=== PATIENT | female | born 1965 | race Two or more races ===

== ENCOUNTER → 2024-03-04 | Outpatient (CLI) | payer MEDICAID, SELFPAY ==
[2024-03-04 12:58] LABS: Absolute Lymphocyte Count 1.55 X10^3/uL (0.83-4.51); Absolute Neutrophil Count 4.2 X10^3/uL (2.0-7.7); Basophil# 0.03 X10^3/uL; Basophil% 0.5 % (0-1); Eosinophil# 0.11 X10^3/uL; Eosinophils% 1.7 % (0-5); Hematocrit 40.8 % (37-47); Lymphocyte # 1.55 X10^3/ul (0.83-4.51); Lymphocyte % 23.8 % (19-41); Mean Corp Hgb Conc 31.9 g/dL (32-36); Mean Corpuscular Hgb 29.2 pg (27.0-32.0); Mean Corpuscular Volume 91.7 fL (81-99); Mean Platelet Vol. 9.4 fl (6.2-12.0); Monocyte# 0.67 X10^3/uL; Monocyte% 10.3 % (0-10); NRBC Flagged by Analyzer 0 % (0-5); Neutrophil # 4.15 X10^3/uL (2.7-7.7); Neutrophil % 63.5 % (47-70); Platelet Count 258 K/mm3 (150-450); RBC Distribution Width CV 12.2 % (11.6-14.6); RBC Distribution Width SD 41.1 fl (35.1-43.9); Red Blood Count 4.45 M/mm3 (4.2-5.4); White Blood Count 6.5 K/mm3 (4.4-11.0)
[2024-03-04 18:27] LABS: ALB/GLOB Ratio 0.9 RATIO (0.9-2.4); AST(SGOT) 21 U/L (15-37); Alanine Aminotransfer ALT/SGPT 23 U/L (13-56); Albumin, Serum 3.6 g/dL (3.2-5.0); Alkaline Phosphatase 91 U/L (45-117); Anion Gap 8 (5-15); BUN 21 mg/dL (7-18); BUN/Creat Ratio 30.4 RATIO (10-20); Calcium,Total 9.4 mg/dL (8.5-10.1); Chloride 106 mmol/L (98-107); Cholesterol 115 mg/dL (200); Creatinine, Serum 0.69 mg/dL (0.55-1.02); EST Glomerular Filtration Rate 93 mL/min (>60); Est Glom Filt Rate - Afr Amer 113 mL/min (>60); Globulin 3.8 g/dL (2.2-4.2); Glucose 97 mg/dL (74-106); High Density Lipoprotein 71 mg/dL; Potassium 4.1 mmol/L (3.5-5.1); Protein, Total 7.4 g/dL (6.4-8.2); Sodium Level 138 mmol/L (136-145); Triglycerides 44 mg/dL; Very Low Density Lipoprotein 9 mg/dL (5-40)
== END | disposition home or self-care (01) ==
LOC: VSLAB 12:32
DX: E78.5 Hyperlipidemia, unspecified (principal); Z13.6 Encounter for screening for cardiovascular disorders
CPT/HCPCS: 36415; 80053; 80061; 84443; 85025

== ENCOUNTER → 2024-03-09 | Outpatient (CLI) | payer MEDICAID, SELFPAY ==
[2024-03-09 17:19] LABS: OXY Internal Control LINE = VALID (VALID); Oxycodone Drug Screen Negative (<100 ng/mL)
[2024-03-09 17:38] LABS: Amphetamine Urine POSITIVE (<1000 ng/mL); Barbiturate Urine VISTA NEGATIVE (< 200 ng/mL); Benzodiazepine Urine VISTA NEGATIVE (< 200 ng/mL); Cocaine Urine VISTA NEGATIVE (< 300 ng/mL); Ecstacy Urine VISTA NEGATIVE (< 500 ng/mL); Methadone Urine VISTA NEGATIVE (< 300 ng/mL); PCP Urine VISTA NEGATIVE (< 25 ng/mL); THC Urine VISTA NEGATIVE (< 50 ng/mL); Vista UDS pH Range 5
== END | disposition home or self-care (01) ==
PROVIDERS: Referring Provider Anesthesiology; Visit Provider Anesthesiology
DX: F11.20 Opioid dependence, uncomplicated (principal)
CPT/HCPCS: 80365; 80307; G0480

== ENCOUNTER → 2024-03-11 | Outpatient (CLI) | payer MEDICAID, SELFPAY ==
[2024-03-11 11:02] LABS: Amphetamine Urine NEGATIVE (<1000 ng/mL); Barbiturate Urine VISTA NEGATIVE (< 200 ng/mL); Benzodiazepine Urine VISTA NEGATIVE (< 200 ng/mL); Cocaine Urine VISTA NEGATIVE (< 300 ng/mL); Ecstacy Urine VISTA NEGATIVE (< 500 ng/mL); Methadone Urine VISTA NEGATIVE (< 300 ng/mL); PCP Urine VISTA NEGATIVE (< 25 ng/mL); THC Urine VISTA NEGATIVE (< 50 ng/mL); Vista UDS pH Range 8
== END | disposition home or self-care (01) ==
PROVIDERS: Referring Provider Anesthesiology; Visit Provider Anesthesiology
DX: F11.120 Opioid abuse with intoxication, uncomplicated (principal)
CPT/HCPCS: 80307

== ENCOUNTER 2024-04-08 12:46 | Outpatient (RCR) | payer BC, MEDICAID, SELFPAY ==
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
--- NOTE | 2024-06-16 12:58 | HP.PT.NRP ---
Patient Information Patient Information: KYMBERLY MARCANO was seen in my office for initial evaluation on 04/08/24. The following Plan of Care was established for this patient: POC Established Initial Frequency: 2-3x /Week Initial Duration: 4-6 Weeks Anticipated Interventions Patient/Client Instruction: Educate patient on: Condition and Plan of Care For the Purpose of:: To decrease pain, To increase ROM, To improve nutrient delivery to tissue, To increase tolerance to activity/condition/position, To improve ability of physical actions for home/community/work/leisure and To improve gait and locomotor functions Therapeutic Exercise to Include: Strength training, Postural training, Flexibilty training, In an aquatic setting, Passive ROM and Active ROM For the Purpose of:: To decrease pain, To increase ROM, To improve nutrient delivery to tissue, To improve muscle performance and motor function and To increase tolerance to activity/condition/position Last Seen Last Seen: This patient was last seen in our office 04/08/24. Pertinent comments regarding their Physical therapy will appear below: Eval performed and POC established, pt had insurance troubles and was to get them taken care of and call when needed to return. It has been over 6 weeks and at this point I will discontinue from my care due to nonattendance but would be happy to see again in future if found appropriate by physician and insurance issues are cleared up. At this point I will be discontinuing this patient from physical therapy. I would be happy to see this patient again in the future if found appropriate by the physician. Thank you! Jorge Ortega, DPT, OCS, CSCS Balance/Gait/Functional tests Balance/Special Test Scores Oswestry Low Back Score: 21
== END 2024-04-08 19:00 | disposition home or self-care (01) ==
LOC: PT 12:46
PROVIDERS: Referring Provider Anesthesiology; Visit Provider Anesthesiology
DX: M54.50 Low back pain, unspecified (principal); G89.29 Other chronic pain; M47.816 Spondylosis without myelopathy or radiculopathy, lumbar region
CPT/HCPCS: 97161

== ENCOUNTER → 2024-07-14 | Outpatient (CLI) | payer BC, SELFPAY ==
--- NOTE | 2024-07-14 14:29 | RAD_ITS ---
PROCEDURE: L/S SPINE COMP/W BENDING VIEWS 07/14/2024 REASON FOR EXAM: LOW BACK PAIN TECHNIQUE: Standing AP lateral and oblique views of the lumbar spine were obtained. COMPARISON: None. FINDINGS: There are no compression fractures. There is maintenance of the normal lumbar lordosis. There is mild dextroscoliosis of the spine centered at the T10-11 level and mild levoscoliosis of the spine centered at the L3 level. There is degenerative disc disease, T10-11 through L5-S1 with narrowing of the intervertebral disc spaces and marginal osteophytes. There is multilevel facet arthropathy. There is degenerative grade 1 retrolisthesis of L1 and L2 and degenerative grade 1 anterolisthesis of L4 on L5. The SI joints are normal. Paravertebral soft tissues are normal. RAD/L/S Spine Comp/w Bending Views IMPRESSION: 1. Multilevel facet arthropathy with scoliosis as described. 2. Multilevel facet arthropathy with degenerative retrolisthesis L1 on L2 and anterolisthesis of L4 on L5. Reading Location: [id number]
== END | disposition home or self-care (01) ==
LOC: MTRAD 14:28
PROVIDERS: Referring Provider Anesthesiology Pain Medicine; Visit Provider Anesthesiology Pain Medicine
DX: M51.372 Other intervertebral disc degeneration, lumbosacral region with discogenic back pain and lower extremity pain (principal)
CPT/HCPCS: 72114

== ENCOUNTER → 2024-07-25 | Outpatient (CLI) | payer BC, SELFPAY ==
--- OUTSIDE RECORDS SUMMARY | 2024-07-25 11:06 | XMS RPT_ITS | CCD ---
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 [place], [address] METHADONE Negative Normal < 300 ng/mL [facility] Comment on above: Order Comment: UNK Performed By: #### L 505.5000, L3410.9998 ####[facility] [address] [place], [address] OPIATES Negative Normal < 300 ng/mL [facility] Comment on above: Order Comment: UNK Performed By: #### L 505.5000, L3410.9998 ####[facility] [address] [place], [address] PCP Negative Normal < 25 ng/mL [facility] Comment on above: Order Comment: UNK Performed By: #### L 505.5000, L3410.9998 ####[facility] [address] [place], [address] THC Negative Normal < 50 ng/mL [facility] Comment on above: Order Comment: UNK Performed By: #### L 505.5000, L3410.9998 ####[facility] [address] [place], [address] VISTA UDS PH 8 Normal [facility] Comment on above: Order Comment: UNK Performed By: #### L 505.5000, L3410.9998 ####[facility] [address] [place], [address] Oxycodone Urine Drug Screeno n 03-09-2024 OXY DRG SCREEN Negative Normal <100 ng/mL [facility] Comment on above: Order Comment: UNKNO WN Performed By: #### L 505.5000, L505.6200, L3410.9998 #### [facility] Laboratory [address] [place], [address] DRUG CONFIRM Normal [facility] Comment on above: Order Comment: UNKNO WN Result Comment: CONF IRMATORY TESTING FOR ALL POSITIVE URINE DRUG SCREEN RESULTS WILL ONLY BE SENT OUT UPON PHYSICIAN ORDER. The results of Urine Drug Screen methods provide only preliminary analytical test results. A more specific alternate chemical method must be used in order to obtain a confirmed analytical result. Gas chromatography/mass spectrometery (GC/MS) is the preferred confirmatory method. Clinical consideration and professional judgement should be applied to any drug of abuse test result, particularly when preliminary positive results are used. Performed By: #### L 505.5000, L505.6200, L3410.9998 #### [facility] [address] [place], [address] Urine Drug Screen (VISTA)on 03-09-2024 AMPHETAMINES Positive Abnormal <1000 ng/mL [facility] Comment on above: Order Comment: UNKNO WN Performed By: #### L 505.5000, L505.6200, L3410.9998 #### [facility] Laboratory [address] [facility] [address] BARBITIURATES Negative Normal < 200 ng/mL [facility] Comment on above: Order Comment: UNKNO WN Performed By: #### L 505.5000, L505.6200, L3410.9998 #### [facility] Laboratory [address] [facility] [address] BENZODIAZIPINE Negative Normal < 200 ng/mL [facility] Comment on above: Order Comment: UNKNO WN Performed By: #### L 505.5000, L505.6200, L3410.9998 #### [facility] [address] [facility] [address] COCAINE Negative Normal < 300 ng/mL [facility] Comment on above: Order Comment: UNKNO WN Performed By: #### L 505.5000, L505.6200, L3410.9998 #### [facility] [address] [facility] [address] ECSTACY Negative Normal < 500 ng/mL [facility] Comment on above: Order Comment: UNKNO WN Performed By: #### L 505.5000, L505.6200, L3410.9998 #### [facility] [address] [place], [address] METHADONE Negative Normal < 300 ng/mL [facility] Comment on above: Order Comment: UNKNO WN Performed By: #### L 505.5000, L505.6200, L3410.9998 #### [facility] [address] [place], [address] OPIATES Negative Normal < 300 ng/mL [facility] Comment on above: Order Comment: UNKNO WN Performed By: #### L 505.5000, L505.6200, L3410.9998 #### [facility] [address] [place], [address] PCP Negative Normal < 25 ng/mL [facility] Comment on above: Order Comment: UNKNO WN Performed By: #### L 505.5000, L505.6200, L3410.9998 #### [facility] [address] [place], [address] THC Negative Normal < 50 ng/mL [facility] Comment on above: Order Comment: UNKNO WN Performed By: #### L 505.5000, L505.6200, L3410.9998 #### [facility] [address] [place], [address] VISTA UDS PH 5 Normal [facility] Comment on above: Order Comment: UNKNO WN Performed By: #### L 505.5000, L505.6200, L3410.9998 #### [facility] Laboratory [address] [place], [address] CBC W/Diff, Automatedon 01-2 Absolute Lymph 1.55 X10 3/uL Normal 0.83-4.51 [facility] Comment on above: Performed By: #### L 501.9520, L100.0100, L500.4100, L500.4050 #### [facility] [address] [place], [address] Absolute Neut 4.2 X10 3/uL Normal 2.0-7.7 [facility] Comment on above: Performed By: #### L 501.9520, L100.0100, L500.4100, L500.4050 #### [facility] Laboratory [address] [place], [address] Basophils/100 WBC (Bld) 0.5 % Normal 0-1 [facility] Comment on above: Performed By: #### L 501.9520, L100.0100, L500.4100, L500.4050 #### [facility] [address] [place], [address] Eosinophils/100 WBC (Bld) 1.7 % Normal 0-5 [facility] Comment on above: Performed By: #### L 501.9520, L100.0100, L500.4100, L500.4050 #### [facility] [address] [place], [address] Erythrocyte distribution width (RBC) [Ratio] 12.2 % Normal 11.6-14.6 [facility] Comment on above: Performed By: #### L 501.9520, L100.0100, L500.4100, L500.4050 #### [facility] [address] [place], [address] Hematocrit (Bld) [Volume fraction] 40.8 % Normal 37-47 [facility] Comment on above: Performed By: #### L 501.9520, L100.0100, L500.4100, L500.4050 #### [facility] [address] [place], [address] Hemoglobin (Bld) [Mass/Vol] 13.0 g/dL Normal 12.0-15.0 [facility] Comment on above: Performed By: #### L 501.9520, L100.0100, L500.4100, L500.4050 #### [facility] [address] [place], [address] IG% 0.200 Normal 0.0-0.9 [facility] Comment on above: Result Comment: IG% - Immature Granulocytes (promyelocytes, myelocytes and metamyelocytes) > 1% indicates that a LEFT SHIFT is Present. Performed By: #### L 501.9520, L100.0100, L500.4100, L500.4050 #### [facility] [address] [place], [address] Lymphocytes/100 WBC (Bld) 23.8 % Normal 19-41 [facility] Comment on above: Performed By: #### L 501.9520, L100.0100, L500.4100, L500.4050 #### [facility] [address] [place], [address] MCH (RBC) [Entitic mass] 29.2 pg Normal 27.0-32.0 [facility] Comment on above: Performed By: #### L 501.9520, L100.0100, L500.4100, L500.4050 #### [facility] [address] [place], [address] MCHC (RBC) [Mass/Vol] 31.9 g/dL Low 32-36 [facility] Comment on above: Performed By: #### L 501.9520, L100.0100, L500.4100, L500.4050 #### [facility] [address] [place], [address] MCV (RBC) [Entitic vol] 91.7 fL Normal 81-99 [facility] Comment on above: Performed By: #### L 501.9520, L100.0100, L500.4100, L500.4050 #### [facility] [address] [place], [address] Monocytes/100 WBC (Bld) 10.3 % High 0-10 [facility] Comment on above: Performed By: #### L 501.9520, L100.0100, L500.4100, L500.4050 #### [facility] [address] [place], [address] Neutrophils/100 WBC (Bld) 63.5 % Normal 47-70 [facility] Comment on above: Performed By: #### L 501.9520, L100.0100, L500.4100, L500.4050 #### [facility] [address] [place], [address] Nucleated RBC (Bld) [#/Vol] 0 10*3/uL Normal 0-5 [facility] Comment on above: Performed By: #### L 501.9520, L100.0100, L500.4100, L500.4050 #### [facility] [address] [place], [address] Platelet mean volume (Bld) [Entitic vol] 9.4 fL Normal 6.2-12.0 [facility] Comment on above: Performed By: #### L 501.9520, L100.0100, L500.4100, L500.4050 #### [facility] [address] [place], [address] Platelets (Bld) [#/Vol] 258 10*3/uL Normal 150-450 [facility] Comment on above: Performed By: #### L 501.9520, L100.0100, L500.4100, L500.4050 #### [facility] [address] [place], [address] RBC (Bld) [#/Vol] 4.45 10*6/uL Normal 4.2-5.4 [facility] Comment on above: Performed By: #### L 501.9520, L100.0100, L500.4100, L500.4050 #### [facility] [address] [place], [address] RDW SD 41.1 fl Normal 35.1-43.9 [facility] Comment on above: Performed By: #### L 501.9520, L100.0100, L500.4100, L500.4050 #### [facility] [address] [place], [address] WBC (Bld) [#/Vol] 6.5 10*3/uL Normal 4.4-11.0 [facility] Comment on above: Performed By: #### L 501.9520, L100.0100, L500.4100, L500.4050 #### [facility] [address] [place], [address] Comprehensive Metabolic [facility] 03-04-2024 Albumin [Mass/Vol] 3.6 g/dL Normal 3.2-5.0 [facility] Comment on above: Performed By: #### L 501.9520, L100.0100, L500.4100, L500.4050 #### [facility] [address] [place], [address] Albumin/Globulin [Mass ratio] 0.9 {ratio} Normal 0.9-2.4 [facility] Comment on above: Performed By: #### L 501.9520, L100.0100, L500.4100, L500.4050 #### [facility] [address] [place], [address] ALK P 91 U/L Normal 45-117 [facility] Comment on above: Performed By: #### L 501.9520, L100.0100, L500.4100, L500.4050 #### [facility] [address] [place], [address] ALT [Catalytic activity/Vol] 23 U/L Normal 13-56 [facility] Comment on above: Performed By: #### L 501.9520, L100.0100, L500.4100, L500.4050 #### [facility] [address] [place], [address] AST [Catalytic activity/Vol] 21 U/L Normal 15-37 [facility] Comment on above: Performed By: #### L 501.9520, L100.0100, L500.4100, L500.4050 #### [facility] [address] [place], [address] Bilirubin [Mass/Vol] 0.50 mg/dL Normal 0.20-1.00 [facility] Comment on above: Result Comment: For patients on eltrombopag therapy, use of Dimension [place] TBIL is not recommended. Performed By: #### L 501.9520, L100.0100, L500.4100, L500.4050 #### [facility] [address] [place], [address] BUN/CRE 30.4 RATIO High 10-20 [facility] Comment on above: Performed By: #### L 501.9520, L100.0100, L500.4100, L500.4050 #### [facility] [address] [place], [address] CA,Total 9.4 mg/dL Normal 8.5-10.1 [facility] Comment on above: Performed By: #### L 501.9520, L100.0100, L500.4100, L500.4050 #### [facility] [address] [place], [address] Chloride [Moles/Vol] 106 mmol/L Normal 98-107 [facility] Comment on above: Performed By: #### L 501.9520, L100.0100, L500.4100, L500.4050 #### [facility] [address] [place], [address] CO2 [Moles/Vol] 23.0 mmol/L Normal 21.0-32.0 [facility] Comment on above: Performed By: #### L 501.9520, L100.0100, L500.4100, L500.4050 #### [facility] [address] [place], [address] Creatinine [Mass/Vol] 0.69 mg/dL Normal 0.55-1.02 [facility] Comment on above: Result Comment: The validity of the calculated GFR GFRAA in patients over 70 years has not been determined. Clinical correlation is essential. Performed By: #### L 501.9520, L100.0100, L500.4100, L500.4050 #### [facility] [address] [place], [address] EST GFR - AA 113 mL/min Normal >60 [facility] Comment on above: Result Comment: Afri can Brazilian GFR Calc Performed By: #### L 501.9520, L100.0100, L500.4100, L500.4050 #### [facility] [address] [place], [address] GAP 8 Normal 5-15 [facility] Comment on above: Performed By: #### L 501.9520, L100.0100, L500.4100, L500.4050 #### [facility] [address] [place], [address] GFR/1.73 sq M.predicted among non-blacks MDRD (S/P/Bld) [Vol rate/Area] 93 mL/min/{1.73_m2} Normal >60 [facility] Comment on above: Result Comment: Non- GFR Calc Performed By: #### L 501.9520, L100.0100, L500.4100, L500.4050 #### [facility] [address] [place], [address] Globulin (S) [Mass/Vol] 3.8 g/dL Normal 2.2-4.2 [facility] Comment on above: Performed By: #### L 501.9520, L100.0100, L500.4100, L500.4050 #### [facility] [address] [place], [address] Glucose [Mass/Vol] 97 mg/dL Normal 74-106 [facility] Comment on above: Performed By: #### L 501.9520, L100.0100, L500.4100, L500.4050 #### [facility] [address] [place], [address] Potassium [Moles/Vol] 4.1 mmol/L Normal 3.5-5.1 [facility] Comment on above: Performed By: #### L 501.9520, L100.0100, L500.4100, L500.4050 #### [facility] [address] [place], [address] Sodium [Moles/Vol] 138 mmol/L Normal 136-145 [facility] Comment on above: Performed By: #### L 501.9520, L100.0100, L500.4100, L500.4050 #### [facility] [address] [place], [address] T PROT 7.4 g/dL Normal 6.4-8.2 [facility] Comment on above: Performed By: #### L 501.9520, L100.0100, L500.4100, L500.4050 #### [facility] [address] [place], [address] Urea nitrogen [Mass/Vol] 21 mg/dL High 7-18 [facility] Comment on above: Performed By: #### L 501.9520, L100.0100, L500.4100, L500.4050 #### [facility] [address] [place], [address] Lipid Profileon 03-04-2024 Cholesterol [Mass/Vol] 115 mg/dL Normal 200 [facility] Comment on above: Result Comment: <200 mg/dL Desirable 200-240 mg/dL Borderline >240 mg/dL High Risk Performed By: #### L 501.9520, L100.0100, L500.4100, L500.4050 #### [facility] [address] [place], [address] Cholesterol in HDL [Mass/Vol] 71 mg/dL Normal [facility] Comment on above: Result Comment: The drugs N-Acetylcysteine and Metamizole may falsely depress this assay. Reference Range HDL <40 mg/dL Low HDL Cholesterol HDL >or= 60 mg/dL High HDL Cholesterol Performed By: #### L 501.9520, L100.0100, L500.4100, L500.4050 #### [facility] [address] [place], [address] Cholesterol in LDL [Mass/Vol] 35 mg/dL Normal 0-130 [facility] Comment on above: Performed By: #### L 501.9520, L100.0100, L500.4100, L500.4050 #### [facility] [address] [place], [address] Cholesterol in VLDL [Mass/Vol] 9 mg/dL Normal 5-40 [facility] Comment on above: Performed By: #### L 501.9520, L100.0100, L500.4100, L500.4050 #### [facility] [address] [place], [address] Triglyceride [Mass/Vol] 44 mg/dL Normal [facility] Comment on above: Result Comment: The drugs N-Acetylcysteine and Metamizole may falsely depress this assay. Serum Triglycerides Reference Interval Normal <150 mg/dL Borderline high 150 - 199 mg/dL High 200 - 499 mg/dL Very High > or = 500 mg/dL Performed By: #### L 501.9520, L100.0100, L500.4100, L500.4050 #### [facility] [address] [place], [place], [address] Thyroid Stim Hormone (TSH)on 03-04-2024 TSH 1.470 uIU/mL Normal 0.358-3.740 [facility] Comment on above: Performed By: #### L 501.9520, L100.0100, L500.4100, L500.4050 #### [facility] [address] [place], [place], [address] [facility] KYMBERLY MARCANO ([id number]) 1965 F Date Time Provider Department 01/07/24 JESSICA ANN [facility] During your visit today, we recorded the following information about you: Jessica Ann APRN.CNP 01/07/2024 7:30 AM Signed Please notify covid test positive. Will send paxlovid to pharmacy. Have hold lipitor for 2 weeks. Quarantine until 24 hours fever free Push fluids and otc cough/cold medication advised. -If you experience chest pain/shortness of breath go to ER Bonilla Lim MA 01/07/2024 7:50 AM Signed Patient given results and verbalized understanding of instructions given. Bonilla Lim MA Allergies As of Date: 01/07/2024 (No Known Allergies) Date Reviewed: 01/06/2024 Reviewed by: Bonilla Lim MA - Fully Assessed Reason for Visit: Results [95] Primary Visit Diagnosis:COVID [U07.1] Order(s):nirmatrelvir tablet 300 mg (150 mg x 2) and ritonavir tablet 100 mg in a dose pack (PAXLOVID)Administer TWO pink nirmatrelvir 150 mg tablets and ONE white ritonavir 100 mg tablet for a total of three tablets twice daily.Disp: 30 tabletRfl: 0 Prescriptions as of 01/07/2024 - nirmatrelvir tablet 300 mg (150 mg x 2) and ritonavir tablet 100 mg in a dose pack (PAXLOVID) Administer TWO pink nirmatrelvir 150 mg tablets and ONE white ritonavir 100 mg tablet for a total of three tablets twice daily. - albuterol HFA (PROVENTIL HFA) 90 mcg/actuation inhaler Inhale 1-2 Puffs as instructed. - atorvastatin (LIPITOR) 40 mg tablet Take 40 mg by mouth. - azelastine 0.1% nasal spray SPRAY 1 SPRAY INTO EACH NOSTRIL TWICE A DAY DIRECTED - amphetamine-dextroamph etamine 15 mg tablet - EPINEPHrine (EPIPEN) 0.3 mg/0.3 mL auto-injector Inject 0.3 mg intramuscularly. - DENTA 5000 PLUS 1.1 % dental cream - fluticasone (FLONASE) 50 mcg/actuation nasal spray Use 1 Luckey in the nose. - Ipratropium Mystic (ATROVENT) 21 mcg (0.03 %) nasal spray Use 2 Sprays in the nose. - meloxicam (MOBIC) 15 mg tablet Take 15 mg by mouth. - metFORMIN (GLUCOPHAGE) 500 mg tablet Take 1 tablet by mouth daily with breakfast. - methocarbamol (ROBAXIN) 500 mg tablet Take 500 mg by mouth. - pantoprazole DR (PROTONIX) 20 mg tablet Take 1 tablet by mouth daily before breakfast. - traMADol (ULTRAM) 50 mg tablet Take 50 mg by mouth. - zolpidem (AMBIEN) 10 mg TAKE 1 TABLET BY MOUTH EVERY DAY AT BEDTIME NEEDED FOR INSOMNIA Indications: difficulty falling asleep Problem List As Of Date: 01/07/2024 (None) Prescriptions ordered this encounter Disp Refills Start End NIRMATRELVIR 300 MG (150 MG X2)-MISSY* 30 t* 0 01/07/2024 01/12/2024 Sig: Administer TWO pink nirmatrelvir 150 mg tablets and ONE white ritonavir 100 mg tablet for a total of three tablets twice daily. Encounter Status:Closed by BONILLA LIM on 01/07/24 Normal [facility] CNOVon 01-06-2024 CNOV Office Visit ([facility] ) KYMBERLY MARCANO ([id number]) 1965 F Date Time Provider Department 01/06/24 12:00 PM CARLOS PARIS [facility] During your visit today, we recorded the following information about you: Temperature Pulse Respiration Blood pressure 98 degrees 100/minute 18/minute 124/68 Weight 70.6 kg Carlos Paris MD 01/06/2024 12:22 PM Signed Patient presents with: Cough: head and chest congestion, bodyaches x 1 day HPI: Feeling sick since yesterday. Positive symptoms: Cough, tickle and thick throat, Sinus pressure, Chills, Malaise, Fatigue, poor appetite Negative symptoms: Shortness of breath, Fever, Vomiting, Diarrhea, OTC: Nyquil, Lozenges Just finished working 7 days in a row. Newly moved to the [facility] [employer]. PAST MEDICAL HISTORY Diagnosis Date ADHD (attention deficit hyperactivity disorder) Dyslipidemia Fibromyositis GERD (gastroesophageal reflux disease) Insomnia Osteoarthritis Prediabetes MEDICATIONS: Current Outpatient Medications Medication Sig albuterol HFA (PROVENTIL HFA) 90 mcg/actuation inhaler Inhale 1-2 Puffs as instructed. atorvastatin (LIPITOR) 40 mg tablet Take 40 mg by mouth. azelastine 0.1% nasal spray SPRAY 1 SPRAY INTO EACH NOSTRIL TWICE A DAY DIRECTED amphetamine-dextroamph etamine 15 mg tablet EPINEPHrine (EPIPEN) 0.3 mg/0.3 mL auto-injector Inject 0.3 mg intramuscularly. DENTA 5000 PLUS 1.1 % dental cream fluticasone (FLONASE) 50 mcg/actuation nasal spray Use 1 Luckey in the nose. Ipratropium Mystic (ATROVENT) 21 mcg (0.03 %) nasal spray Use 2 Sprays in the nose. meloxicam (MOBIC) 15 mg tablet Take 15 mg by mouth. metFORMIN (GLUCOPHAGE) 500 mg tablet Take 1 tablet by mouth daily with breakfast. methocarbamol (ROBAXIN) 500 mg tablet Take [address] mouth[address]op[address] (PROTONIX) 20 mg tablet Take 1 tablet by mouth daily before breakfast. traMADol (ULTRAM) 50 mg tablet Take 50 mg by mouth. zolpidem (AMBIEN) 10 mg TAKE 1 TABLET BY MOUTH EVERY DAY AT BEDTIME NEEDED FOR INSOMNIA Indications: difficulty falling asleep No current facility-administered medications for this visit. ALLERGIES: ALLERGIES No Known Allergies VITALS: BP 124/68 Pulse 100 Temp 36.7 ?C (98 ?F) Resp 18 Wt 70.6 kg (155 lb 10.3 oz) SpO2 95% PHYSICAL EXAM: GEN: mildly ill appearing. Accompanied by her HEENT: PERRL, EOMI, conjunctiva clear Ears: canals with small cerumen. TMs without erythema, bulge, or effusion Sinuses: non-tender frontal sinus, non-tender maxillary sinuses Throat: moist mucous membranes, mild erythema, no exudate Neck: supple, no thyromegaly, no lymphadenopathy HEART: regular rate and rhythm, no murmurs LUNGS: clear to auscultation, no wheezes or crackles, no increased WOB ASSESSMENT/PLAN: 1. Influenza-like illness - ICD9: 487.1, ICD10: J11.1 - suspect viral URI, differential includes COVID-19 and influenza. - Discussed supportive care treatment with rest, hydration, cold medicine, and analgesia. - Red flags to seek further treatment include chest pain, shortness of breath, and lethargy; in the ER if severe. - COVID AND INFLUENZA A/B AND RSV PCR, ROUTINE - she would like antiviral treatment if positive. Reports normal kidney function within the last year. Carlos Paris MD Allergies As of Date: 01/06/2024 (No Known Allergies) Date Reviewed: 01/06/2024 Reviewed by: Bonilla Lim MA - Fully Assessed Reason for Visit: Cough [28] Cmt: head and chest congestion, bodyaches x 1 day Primary Visit Diagnosis:Influenza-li ke illness [J11.1] Order(s):COVID AND INFLUENZA A/B AND RSV PCR, ROUTINE [SQCVFLRS] Order #: [id number]. #:[id number] Prescriptions as of 01/06/2024 - albuterol HFA (PROVENTIL HFA) 90 mcg/actuation inhaler Inhale 1-2 Puffs as instructed. - atorvastatin (LIPITOR) 40 mg tablet Take 40 mg by mouth. - azelastine 0.1% nasal spray SPRAY 1 SPRAY INTO EACH NOSTRIL TWICE A DAY DIRECTED - amphetamine-dextroamph etamine 15 mg tablet - EPINEPHrine (EPIPEN) 0.3 mg/0.3 mL auto-injector Inject 0.3 mg intramuscularly. - DENTA 5000 PLUS 1.1 % dental cream - fluticasone (FLONASE) 50 mcg/actuation nasal spray Use 1 Luckey in the nose. - Ipratropium Mystic (ATROVENT) 21 mcg (0.03 %) nasal spray Use 2 Sprays in the nose. - meloxicam (MOBIC) 15 mg tablet Take 15 mg by mouth. - metFORMIN (GLUCOPHAGE) 500 mg tablet Take 1 tablet by mouth daily with breakfast. - methocarbamol (ROBAXIN) 500 mg tablet Take 500 mg by mouth. - pantoprazole DR (PROTONIX) 20 mg tablet Take 1 tablet by mouth daily before breakfast. - traMADol (ULTRAM) 50 mg tablet Take 50 mg by mouth. - zolpidem (AMBIEN) 10 mg TAKE 1 TABLET BY MOUTH EVERY DAY AT BEDTIME NEEDED FOR INSOMNIA Indications: difficulty falling asleep Problem List As Of Date: 01/06/2024 (None) Level of Service: OFFICE/OUTPAT (more content not included)... Normal [facility] COVID AND INFLUENZA A/B AND RSV PCR, ROUTINEon 01-06-2024 SARS-CoV-2 (COVID-19) RNA MASON+probe Ql (Unsp spec) SARS-COV-2 (AGENT OF COVID-19) RNA: Detected INFLUENZA A RNA: Not detected INFLUENZA B RNA: Not detected RESPIRATORY SYNCYTIAL VIRUS (RSV) RNA: Not detected Abnormal [facility] Comment on above: Performed By: #### C VFLRS #### [facility] CLIA [id number] [address] [place] [address] [place] Vital Signs Date Time Vital Sign Value Performing Clinician Facility 07-17-2024 14:05-0400 Body height 170.18 cm Zebulun Beam GOLF COURSE MANAGER-C Work Phone: [facility] 07-17-2024 14:05-0400 Body mass index (BMI) [Ratio] 27.1 kg/m2 Zebulun Beam GOLF COURSE MANAGER-C Work Phone: [facility] 07-17-2024 14:05-0400 Body weight 78.47 kg Zebulun Beam GOLF COURSE MANAGER-C Work Phone: [facility] 01-06-2024 11:56-0500 Body temperature 98.01 [degF] Carlos Paris MD Work Phone: [facility] 01-06-2024 11:56-0500 Body weight 70.6 kg Carlos Paris MD Work Phone: [facility] 01-06-2024 11:56-0500 Diastolic blood pressure 68 mm[Hg] Carlos Paris MD Work Phone: [facility] 01-06-2024 11:56-0500 Heart rate 100 /min Carlos Paris MD Work Phone: [facility] 01-06-2024 11:56-0500 Respiratory rate 18 /min Carlos Paris MD Work Phone: [facility] 01-06-2024 11:56-0500 SaO2% (BldA) [Mass fraction] 95 % Carlos Paris MD Work Phone: [facility] 01-06-2024 11:56-0500 Systolic blood pressure 124 mm[Hg] Carlos Paris MD Work Phone: [facility] Encounters Encounter Date Encounter Type Care Provider Facility Start: 07-25-2024 ambulatory Sherry Warren Facility:[facility] Start: 07-17-2024 End: 07-17-2024 Patient encounter procedure Sherry BRADLEY -[facility] Work Phone: Start: 07-17-2024 End: 07-17-2024 ambulatory Zebulun Beam GOLF COURSE MANAGER-C Work Phone: [facility] Work Phone: Start: 07-14-2024 End: 07-14-2024 ambulatory Zebulun Beam GOLF COURSE MANAGER-C Work Phone: [facility] Work Phone: Start: 07-14-2024 End: 07-14-[address] Artie Haynes MD -Radiology [place] Work Phone: Start: 07-14-2024 End: 07-14-2024 ambulatory Artie Haynes Facility:[facility] Start: 04-08-2024 End: 04-08-[address] Hema Guardado MD -Physical Therapy Work Phone: Start: 04-08-2024 End: 04-08-2024 ambulatory Hema Guardado Facility:[facility] Start: 03-30-2024 ambulatory Zebulun Beam VSC Facili ty:[facility] Start: 03-11-2024 End: 03-11-2024 [facility] Start: 03-09-2024 End: 03-09-2024 ambulatory Zebulun Beam VSC Facility:[facility] Start: 03-04-2024 End: 03-04-2024 ambulatory Zebulun Beam VSC Facility:[facility] Start: 01-11-2024 End: 01-11-2024 ambulatory Nicole Weir RN NURSE [employer]KEEPING [employer]PER[employer] Comment on above: Covid Positive Start: 01-07-2024 End: 01-07-2024 Telephone encounter Jessica Ann APRN.CNP Work Phone: [facility] Comment on above: Results Start: 01-06-2024 End: 01-06-2024 ambulatory Facility:[facility] Start: 01-06-2024 End: 01-06-2024 Office outpatient new 30 minutes Carlos Paris MD Work Phone: [facility] Comment on above: Influenza-like illne ss (Primary Dx) Procedures Date Procedure Procedure Detail Performing Clinician Start: 07-14-2024 Complete x-ray serie s of lumbosacral spine including bending views Zebulun Beam GOLF COURSE MANAGER-C Work Phone: Start: 07-16-2022 Lipid 1996 panel - S danny or Plasma Carlos Paris MD Work Phone: Plan of Treatment Date Care Activity Detail Author Start: 09-21-2029 Urine microalbumin profile DTaP,Tdap,Td Vaccine (2 - Td or Tdap) [facility] Start: 07-17-2027 Lipid panel Lipid Screening [facility] Start: 04-29-2026 Diabetes Screening Diabetes Screening [facility] Start: 10-13-2023 Covid-19 Vaccine () Covid-19 Vaccine () [facility] Start: 10-13-2023 Influenza vaccination Influenza Vaccine (#1) [facility] Start: 04-09-2023 Screening for malignant neoplasm of breast Mammogram Screening [facility] Start: 11-04-2011 Screening for malignant neoplasm of colon [facility] Start: 11-04-1987 Screening for malignant neoplasm of cervix Cervical Cancer Screening [facility] Start: 1985 Hepatitis B Vaccine (1 of 3 - 19+ 3-dose series) Hepatitis B Vaccine (1 of 3 - 19+ 3-dose series) [facility] Start: 1984 Anxiety Screening Anxiety Screening [facility] Start: 1984 Depression Screening Depression Screening [facility] Start: 1984 Hepatitis C screening Hepatitis C Screening [facility] Start: 1984 HIV screening HIV Screening [facility] COVID & INFLUENZA A/ B & RSV PCR, ROUTINE COVID & INFLUENZA A/B & RSV PCR, ROUTINE Microbiology Routine Influenza-like illness 01/06/2024 12:18 PM EST [facility] Work Phone: MR Lumbar spine [facility] [place] [place] Immunizations Immunization Date Immunization Notes Care Provider Fa cility 11-15-2022 influenza virus vacc ine, unspecified formulation Carlos Paris MD Work Phone: [facility] Payers Date Payer Category Payer Self-pay 2024 Unknown [id number] 2024 Private Health Insurance [employer]NA [employer] MEDICAID [facility] [id number] 2024-Present [address] [address] [place] [address] Medicaid [id number] 2024 Medicaid [id number] Unknown [id number] 62 Unknown [id number] 62 Unknown [id number] 62 Unknown [id number] 62 Unknown [id number] 62 Unknown [id number] 62 Unknown [id number] 62 Unknown [id number] 62 Social History Date Type Detail Facility Tobacco smoking status NHIS Tobacco smoking consumption unknown [facility] Start: 1965 Sex assigned at Not on file [facility] Gender identity Not on file [facility] Start: 07-17-2024 Tobacco smoking status NHIS Never smoked tobacco (finding) [facility] Start: 1965 Sex Assigned At Female [facility] Clinical Notes 01-06-2024 to 07-17-2024 Note Date & Type Note Facility 07-17-2024 Evaluation note Diagnosis Onset Date Resolution Degenerative disc disease (DDD) of lumbar region with axial back pain witho acute July 17, 2024 1:53pm Spondylolisthesis at L1-L2 level acute July 17, 2024 1:53pm Spondylolisthesis at L4-L5 level acute July 17, 2024 1:53pm [facility] Work Phone: 1(897) 794-775306-04-2025 Radiology Diagnostic study note [facility] Imaging Services [address] [place] [address] L/S Spine Comp/w Bending Views MR#: [id number] Acct: [id number] Name: KYMBERLY MARCANO Rep #: [id number] : 1965 F 58 From: Sarkis Fermin MD PCP: Alejandra Avila GOLF COURSE MANAGER-C Status: REG CLI Study:L/S Spine Comp/w Bending Views Date of Exam: 07/14/24 Exam# [id number] Ordering Dr: Artie Haynes MD PROCEDURE: L/S SPINE COMP/W BENDING VIEWS 07/14/2024 REASON FOR EXAM: LOW BACK PAIN TECHNIQUE: Standing AP lateral and oblique views of the lumbar spine were obtained. COMPARISON: None. FINDINGS: There are no compression fractures. There is maintenance of the normal lumbar lordosis. There is mild dextroscoliosis of the spine centered at the T10-11 level and mild levoscoliosis of the spine centered at the L3 level. There is degenerative disc disease, T10-11 through L5-S1 with narrowing of the intervertebral disc spaces and marginal osteophytes. There is multilevel facet arthropathy. There is degenerative grade 1 retrolisthesis ofL1 and L2 and degenerative grade 1 anterolisthesis of L4 on L5. The SI joints are normal. Paravertebral soft tissues are normal. RAD/L/S Spine Comp/w Bending Views IMPRESSION: 1. Multilevel facet arthropathy with scoliosis as described. 2. Multilevel facet arthropathy with degenerative retrolisthesis L1 on L2 and anterolisthesis of L4on L5. Reading Location: [id number] CC: Dr. Artie Haynes MD; Alejandra [facility] Avila ~ Medical Claims Manager: Signed [facility] Work Phone: 1(555) 485-725711-30-2024 Telephone encounter Note* Telephone Encounter - Nicole Weir RN - 01/11/2024 1:38 PM EST Reason for Call: The patient was tested for Covid on 01/06/24 at [facility]. Her test waspositive and she was started on Paxlovid on 01/07/24. She has one more dose to take. She stated shefeels fine, has only a slight cough, no fever. She just noticed that she has purple blotches on herarms and legs, but nowhere else on the body. She denies feeling cold or in a cold environment. She wonders if this is a side effect of the Paxlovid. Outcome: Looked at the Paxlovid website, and skin color changes are not listed as a side effect. [facility] She wants to take a warm bath first and see if that helps. Told her [facility] will be closing soon and after that her alternative is ER. Reason for Disposition [1] COVID-19 symptoms AND [2] lasting less than 3 weeks MILD difficulty breathing (e.g., minimal/no SOB at rest, SOB with walking, pulse <100) Patient is having no difficulty breathing. Because of the purple color of her extremities, nurse discretion that patient be seen within four hours. Answer Assessment - Initial Assessment Questions 1. SYMPTOMS: just noticed that her arms and legs have purple blotches on them 2. ONSET: just noticed 3. COUGH:still has a mild cough 4. FEVER: no fever 5. BREATHING DIFFICULTY: no difficulty breathing 6. [id number]:feels fine, purple skin just noticed 7. OTHER SYMPTOMS: cough 8. COVID-19 DIAGNOSIS:seen in [facility] on 01/[facility]24 9. COVID-19 EXPOSURE:not asked 10. COVID-19 VACCINE: not asked 11. HIGH RISK DISEASE: asthma 12. : N/A 13. O2 SATURATION MONITOR: Pulse oximeter is still packed in moving boxes Protocols used: COVID-19 - Persisting Symptoms Follow-up [id number], COVID-19 - Diagnosed or [id number] [facility]11-30-2024 Miscellaneous Notes* Telephone Encounter - Nicole Weir RN - 01/11/2024 1:38 PM EST Reason for Call: The patient was tested for Covid on 01/06/24 at [facility]. Her test waspositive and she was started on Paxlovid on 01/07/24. She has one more dose to take. She stated shefeels fine, has only a slight cough, no fever. She just noticed that she has purple blotches on herarms and legs, but nowhere else on the body. She denies feeling cold or in a cold environment. She wonders if this is a side effect of the Paxlovid. Outcome: Looked at the Paxlovid website, and skin color changes are not listed as a side effect. Instructed [facility] to [facility] to [facility]. She wants to take a warm bath first and see if that helps. Told her [facility] will be closing soon and after that her alternative is ER. Reason for Disposition [1] COVID-19 symptoms AND [2] lasting less than 3 weeks MILD difficulty breathing (e.g., minimal/no SOB at rest, SOB with walking, pulse <100) Patient is having no difficulty breathing. Because of the purple color of her extremities, nurse discretion that patient be seen within four hours. Answer Assessment - Initial Assessment Questions 1. SYMPTOMS: just noticed that her arms and legs have purple blotches on them 2. ONSET: just noticed 3. COUGH:still has a mild cough 4. FEVER: no fever 5. BREATHING DIFFICULTY: no difficulty breathing 6. [id number]:feels fine, purple skin just noticed 7. OTHER SYMPTOMS: cough 8. COVID-19 DIAGNOSIS:[facility] 9. COVID-19 EXPOSURE:not asked 10. COVID-19 VACCINE: not asked 11. HIGH RISK DISEASE: asthma 12. : N/A 13. O2 SATURATION MONITOR: Pulse oximeter is still packed in moving boxes Protocols used: COVID-19 - Persisting Symptoms Follow-up [id number], COVID-19 - Diagnosed or [id number] [facility] Telephone encounter Note * Telephone Encounter - Bonilla Lim MA - 01/07/2024 7:49 AM EST Patient given results and verbalized understanding of instructions given. Bonilla Lim MA [facility]11-26-2024 Miscellaneous Notes* Telephone Encounter - Bonilla Lim MA - 01/07/2024 7:49 AM EST Patient given results and verbalized understanding of instructions given. Bonilla Lim MA * Telephone Encounter - Jessica Ann APRN.CNP - 01/07/2024 7:23 AM EST Please notify covid test positive. Will send paxlovid to pharmacy. Have hold lipitor for 2 weeks. Quarantine until 24 hours fever free Push fluids and otc cough/cold medication advised. -If you experience chest pain/shortness of breath go to ER [facility] Telephone encounter Note * Telephone Encounter - Jessica Ann APRN.CNP - 01/07/2024 7:23 AM EST Please notify covid test positive. Will send paxlovid to pharmacy. Have hold lipitor for 2 weeks. Quarantine until 24 hours fever free Push fluids and otc cough/cold medication advised. -If you experience chest pain/shortness of breath go to ER [facility]11-25-2024 NoteHNO ID: [id number] Author: CARLOS PARIS MD Service: ? Author Type: Physician Type: Progress Notes Filed: 01/06/2024 12:22 Note Text: Patient presents with: Cough: head and chest congestion, bodyaches x 1 day HPI: Feeling sick since yesterday. Positive symptoms: Cough, tickle and thick throat, Sinus pressure, Chills, Malaise, Fatigue, poor appetite Negative symptoms: Shortness of breath, Fever, Vomiting, Diarrhea, OTC: Nyquil, Lozenges Just finished working 7 days in a row. Newly moved to the [facility] [employer]. PAST MEDICAL HISTORY Diagnosis Date ADHD (attention deficit hyperactivity disorder) Dyslipidemia Fibromyositis GERD (gastroesophageal reflux disease) Insomnia Osteoarthritis Prediabetes MEDICATIONS: Current Outpatient Medications Medication Sig albuterol HFA (PROVENTIL HFA) 90 mcg/actuation inhaler Inhale 1-2 Puffs as instructed. atorvastatin (LIPITOR) 40 mg tablet Take 40 mg by mouth. azelastine 0.1% nasal spray SPRAY 1 SPRAY INTO EACH NOSTRIL TWICE A DAY DIRECTED amphetamine-dextroamphetamine 15 mg tablet EPINEPHrine (EPIPEN) 0.3 mg/0.3 mL auto-injector Inject 0.3 mg intramuscularly. DENTA 5000 PLUS 1.1 % dental cream fluticasone (FLONASE) 50 mcg/actuation nasal spray Use 1 Luckey in the nose. Ipratropium Mystic (ATROVENT) 21 mcg (0.03 %) nasal spray Use 2 Sprays in the nose. meloxicam (MOBIC) 15 mg tablet Take 15 mg by mouth. metFORMIN (GLUCOPHAGE) 500 mg tablet Take 1 tablet by mouth daily with breakfast. methocarbamol (ROBAXIN) 500 mg tablet Take [address] (PROTONIX) 20 mg tablet Take 1 tablet by mouth daily before breakfast. traMADol (ULTRAM) 50 mg tablet Take 50 mg by mouth. zolpidem (AMBIEN) 10 mg TAKE 1 TABLET BY MOUTH EVERY DAY AT BEDTIME NEEDED FOR INSOMNIA Indications: difficulty falling asleep No current facility-administered medications for this visit. ALLERGIES: ALLERGIES No Known Allergies VITALS: BP 124/68 Pulse 100 Temp 36.7 ?C (98 ?F) Resp 18 Wt 70.6 kg (155 lb 10.3 oz) SpO2 95% PHYSICAL EXAM: GEN: mildly ill appearing. Accompanied by her HEENT: PERRL, EOMI, conjunctiva clear Ears: canals with small cerumen. TMs without erythema, bulge, or effusion Sinuses: non-tender frontal sinus, non-tender maxillary sinuses Throat: moist mucous membranes, mild erythema, no exudate Neck: supple, no thyromegaly, no lymphadenopathy HEART: regular rate and rhythm, no murmurs LUNGS: clear to auscultation, no wheezes or crackles, no increased WOB ASSESSMENT/PLAN: 1. Influenza-like illness - ICD9: 487.1, ICD10: J11.1 - suspect viral URI, differential includes COVID-19 and influenza. - Discussed supportive care treatment with rest, hydration, cold medicine, and analgesia. - Red flags to seek further treatment include chest pain, shortness of breath, and lethargy; in the ER if severe. - COVID AND INFLUENZA A/B AND RSV PCR, ROUTINE - she would like antiviral treatment if positive. Reports normal kidney function within the last year. Carlos Paris, [facility]11-25-2024 History of Present illness Narrative* Carlos Paris MD - 01/06/2024 11:58 AM EST Patient presents with: Cough: head and chest congestion, bodyaches x 1 day HPI: Feeling sick since yesterday. Positive symptoms: Cough, tickle and thick throat, Sinus pressure, Chills, Malaise, Fatigue, poor appetite Negative symptoms: Shortness of breath, Fever, Vomiting, Diarrhea, OTC: Nyquil, Lozenges Just finished working 7 days in a row. Newly moved to the [facility] [employer]. PAST MEDICAL HISTORY Diagnosis Date ADHD (attention deficit hyperactivity disorder) Dyslipidemia Fibromyositis GERD (gastroesophageal reflux disease) Insomnia Osteoarthritis Prediabetes MEDICATIONS: Current Outpatient Medications Medication Sig albuterol HFA (PROVENTIL HFA) 90 mcg/actuation inhaler Inhale 1-2 Puffs as instructed. atorvastatin (LIPITOR) 40 mg tablet Take 40 mg by mouth. azelastine 0.1% nasal spray SPRAY 1 SPRAY INTO EACH NOSTRIL TWICE A DAY DIRECTED amphetamine-dextroamphetamine 15 mg tablet EPINEPHrine (EPIPEN) 0.3 mg/0.3 mL auto-injector Inject 0.3 mg intramuscularly. DENTA 5000 PLUS 1.1 % dental cream fluticasone (FLONASE) 50 mcg/actuation nasal spray Use 1 Luckey in the nose. Ipratropium Mystic (ATROVENT) 21 mcg (0.03 %) nasal spray Use 2 Sprays in the nose. meloxicam (MOBIC) 15 mg tablet Take 15 mg by mouth. metFORMIN (GLUCOPHAGE) 500 mg tablet Take 1 tablet by mouth daily with breakfast. methocarbamol (ROBAXIN) 500 mg tablet Take [address] (PROTONIX) 20 mg tablet Take 1 tablet by mouth daily before breakfast. traMADol (ULTRAM) 50 mg tablet Take 50 mg by mouth. zolpidem (AMBIEN) 10 mg TAKE 1 TABLET BY MOUTH EVERY DAY AT BEDTIME NEEDED FOR INSOMNIA Indications: difficulty falling asleep No current facility-administered medications for this visit. ALLERGIES: ALLERGIES No Known Allergies VITALS: BP 124/68 Pulse 100 Temp 36.7 C (98 F) Resp 18 Wt 70.6 kg (155 lb 10.3 oz) SpO2 95% PHYSICAL EXAM: GEN: mildly ill appearing. Accompanied by her HEENT: PERRL, EOMI, conjunctiva clear Ears: canals with small cerumen. TMs without erythema, bulge, or effusion Sinuses: non-tender frontal sinus, non-tender maxillary sinuses Throat: moist mucous membranes, mild erythema, no exudate Neck: supple, no thyromegaly, no lymphadenopathy HEART: regular rate and rhythm, no murmurs LUNGS: clear to auscultation, no wheezes or crackles, no increased WOB ASSESSMENT/PLAN: 1. Influenza-like illness - ICD9: 487.1, ICD10: J11.1 - suspect viral URI, differential includes COVID-19 and influenza. - Discussed supportive care treatment with rest, hydration, cold medicine, and analgesia. - Red flags to seek further treatment include chest pain, shortness of breath, and lethargy; in theER if severe. - COVID & INFLUENZA A/B & RSV PCR, ROUTINE - she would like antiviral treatment if positive. Reports normal kidney function within the last year. Carlos Paris MD [facility]* Diagnosis Influenza-like illness- Primary Influenza with other respiratory manifestations documented in this encounter [facility] note* Diagnosis COVID- Primary [facility] noteNo assessment information availableCommunity [facility] Work Phone: Reason for referral (narrative)No reason for referral information availableCommunity [facility] Work Phone: Summary Purpose Family History No Family History Records Found Relationship Condition Age at Onset Recorded Date/T alicia Not Specified Diabetes mellitus Unknown Malignant neoplasm Unknown Advance Directives No Advanced Directives Records FoundNo Advanced Directives Records Found Chief Complaint and Reason for Visit Chief Complaint Admit Date LUMBAR SPONDYLOSIS, RX HERE March 12:46pm LUMBAR SPINE July 17, 2024 1:53p m Reason for Visit Admit Date Degenerative disc disease (D DD) of lumbar region with axial back pain witho July 17, 2024 1:53pm Spondylolisthesis at L1-L2 level July 1:53pm Spondylolisthesis at L4-L5 level July 1:53pm Additional Source Comments Source Comments (unrecognize d section and content) In the event this informatio n is protected by the Federal Confidentiality of Alcohol and Drug Abuse Patient Records regulations: The Federal rules restrict any use of the information to criminally investigate or prosecute any alcohol or drug abuse patient.[facility] HospitalIn the event this information is protected by the Federal Confidentiality of Alcohol and Drug Abuse Patient Records regulations: The Federal rules restrict any use of the information to criminally investigate or prosecute any alcohol or drug abuse patient.[facility] the event this information is protected by the Federal Confidentiality of Alcohol and Drug Abuse Patient Records regulations: The Federal rules restrict any use of the information to criminally investigate or prosecute any alcohol or drug abuse patient.[facility] Reason for Visit (unrecogniz ed section and content) Reason Comments Cough head and chest conge stion, bodyaches x 1 day Reason Comments Results Reason Comments Covid Positive INFORMATION SOURCE (unrecogn ized section and content) DATE CREATED AUTHOR 01/08/2024 [facility] DATE CREATED AUTHOR AUTHOR'S CALI ATION 07/25/2024 [facility] Care Teams (unrecognized sec tion and content) Team Status: Active Member Role Status Dates Arpanlubandar Beam VSC, [employer]SE MANAGER-C Primary Care Provider Active Team Status: Inactive Member Role Status Dates Zebulubandar Beam VSC, GOLF COURSE MANAGER-C Primary Care Provider Active Start: April 08, 2024 End: April 08, 2024 Dr. Hema Guardado MD Attending Provider Active Start: April 08, 2024 End: April 08, 2024 Dr. Hema Guardado MD Referring Provider Active Start: April 08, 2024 End: April 08, 2024 Team Status: Active Member Role Status Dates Alejandra Beam VSC, GOLF COURSE MANAGER-C Primary Care Provider Active Start: July 14, 2024 Dr. Artie Haynes MD Attending Provider Active Start: July 14, 2024 Dr. Artie Haynes MD Referring Provider Active Start: July 14, 2024 Team Status: Inactive Member Role Status Dates Zebulun Beam VSC, GOLF COURSE MANAGER-C Primary Care Provider Active Start: July 17, 2024 End: July 17, 2024 Carterbulun Beam VSC, GOLF COURSE MANAGER-C Referring Provider Active Start: July 17, 2024 End: July 17, 2024 MIRNA Cotrez Attending Provider Active Star t: July 17, 2024 End: July 17, 2024 Team Status: Inactive Member Role Status Dates Zebulun Beam VSC, G[employer]F COURSE MANAGER-C Primary Care Provider Active Start: July 14, 2024 End: July 14, 2024 Dr. Artie Haynes MD Attending Provider Active Start: July 14, 2024 End: July 14, 2024 Dr. Artie Haynes MD Referring Provider Active Start: July 14, 2024 End: July 14, 2024 Goals (unrecognized section and content) Goals may be documented in a n alternate sectionGoals may be documented in an alternate section FOR RECORDS PERTAINING TO PATIENTS WHO ARE OR HAVE BEEN ENROLLED IN A CHEMICAL DEPENDENCY/SUBSTANCEABUSE PROGRAM, SOME INFORMATION MAY BE OMITTED. This clinical summary was aggregated from multiple sources. Caution should be exercised in using it in the provision of clinical care. This summary normalizes information from multiple sources, and as a consequence, information in this document may materially change the coding, format and clinical context of patient data. In addition, data may be omitted in some cases. CLINICAL DECISIONS SHOULD BE BASED ON THE PRIMARY CLINICAL RECORDS. [facility] [employer] [facility]. provides no warranty or guarantee of the accuracy or completeness of information in this document.
--- NOTE | 2024-07-25 15:30 | MRI_ITS ---
PROCEDURE: MRI SPINE LUMBAR (ROUTINE) 07/25/2024 REASON FOR EXAM: PAIN, SPONDYLOLISTHESIS TECHNIQUE: Multiplanar and multisequence images were obtained without IV contrast administration. COMPARISON: Lumbar spine radiograph from 07/14/2024. FINDINGS: Lumbar vertebral bodies maintain a normal height. There is levoscoliosis of the lumbar spine. There is diminished signal intensity involving the discs throughout the lumbar spine and visualized lower thoracic spine related to degenerative disc disease. Multilevel disc space narrowing with endplate spurring is identified. There are Modic type 1 endplate degenerative changes at L1-L2 and Modic type 2 endplate degenerative changes at T12-L1. There is mild anterolisthesis of L4-L5. There is mild retrolisthesis of L1-L2. No acute fracture or subluxation is identified. The tip of the conus medullaris terminates at T12 and signal intensity of the included spinal cord is within normal limits. Individual levels: T11-T12: Mild disc bulge with facet arthropathy. No significant central canal stenosis or neural foraminal narrowing. T12-L1: Disc bulge with facet/flavum hypertrophy. No significant central canal stenosis or neural foraminal narrowing. L1-L2: Mild retrolisthesis with disc bulge and facet/flavum hypertrophy results in eexc-oe-hhtgviic central canal stenosis. There is unfi-ez-veqwmyml bilateral neural foraminal narrowing. L2-L3: No disc herniation, central canal stenosis, or neural foraminal narrowing. Facet/flavum hypertrophy is identified. L3-L4: Mild disc bulge with facet/flavum hypertrophy. No significant central canal stenosis or left neural foraminal narrowing. Mild right neural foraminal narrowing is present. L4-L5: Grade 1 anterolisthesis with circumferential disc bulge and facet/flavum hypertrophy results in severe central canal stenosis. There is narrowing of the bilateral lateral recesses. Mild bilateral neural foraminal narrowing is present. L5-S1: Central disc extrusion with mild superior migration superimposed on a mild disc bulge results in abutment of the bilateral S1 nerves with mild to moderate central canal stenosis. No significant neural foraminal narrowing is present. Facet arthropathy is identified. MRI/Spine Lumbar (Routine) IMPRESSION: 1. At L4-L5, grade 1 anterolisthesis with disc bulge and facet/flavum hypertrop hy results in severe central canal stenosis and mild bilateral neural foraminal narrowing. 2. At L5-S1, central disc extrusion with mild superior migration superimposed o n a mild disc bulge with abutment of the bilateral S1 nerves and mild to moderate central canal stenosis. 3. At L1-L2, mild retrolisthesis with disc bulge and facet/flavum hypertrophy r esults in bkfm-la-hmwakcxk central canal stenosis. Stin-yy-xsfiwtua bilateral neural foraminal narrowing is present. 4. Levoscoliosis. Reading [facility]
== END | disposition home or self-care (01) ==
PROVIDERS: PCP Nurse Practitioner Family; Referring Provider Student in an Organized Health Care Education/Training Program; Visit Provider Student in an Organized Health Care Education/Training Program
DX: M54.50 Low back pain, unspecified (principal)
CPT/HCPCS: 72148

== ENCOUNTER → 2024-09-17 | Outpatient (CLI) | payer BC, SELFPAY ==
--- NOTE | 2024-09-17 16:31 | RAD_ITS ---
PROCEDURE: CERV SPINE 4 OR 5 VIEWS 09/17/2024 REASON FOR EXAM: NECK INJURY TECHNIQUE: CERV SPINE 4 OR 5 VIEWS COMPARISON: None FINDINGS: There is no evidence of fracture or subluxation. There is loss of the normal cervical lordosis. There is degenerative disc disease, C3-4 through C6-7 with narrowing of the intervertebral disc spaces and marginal osteophytes. There is multilevel facet arthropathy. There is degenerative grade 1 anterolisthesis of C7 on T1 RAD/Cerv Spine 4 or 5 Views IMPRESSION: 1. No evidence of acute bony injury. 2. Multilevel degenerative disc disease. 3. Multilevel facet arthropathy with grade 1 anterolisthesis of C7 on T1. Reading Location: [id number]
--- NOTE | 2024-09-17 16:32 | RAD_ITS ---
PROCEDURE: SHOULDER MIN 2 VIEWS 09/17/2024 REASON FOR EXAM: LEFT SHOULDER UPPER ARM INJURY TECHNIQUE: SHOULDER MIN 2 VIEWS COMPARISON: None FINDINGS: Four views of left shoulder show no evidence of fracture or dislocation. There is mild arthritis of the glenohumeral joint. There is moderate arthritis of the acromioclavicular joint. The periarticular soft tissues are normal. RAD/Shoulder min 2 Views IMPRESSION: DEGENERATIVE OSTEOARTHROSIS. NO ACUTE FINDINGS. Reading Location: [id number]
== END | disposition home or self-care (01) ==
LOC: MTRAD 16:30
PROVIDERS: PCP Nurse Practitioner Family; Referring Provider Nurse Practitioner Family; Visit Provider Nurse Practitioner Family
DX: S19.9XXA Unspecified injury of neck, initial encounter (principal); S49.92XA Unspecified injury of left shoulder and upper arm, initial encounter; X58.XXXA Exposure to other specified factors, initial encounter
CPT/HCPCS: 72050; 73030

== ENCOUNTER → 2024-10-24 | Outpatient (CLI) | payer BC, SELFPAY ==
--- OUTSIDE RECORDS SUMMARY | 2024-10-24 08:06 | XMS RPT_ITS | CCD ---
Author Organization [facility] Care Team Providers Care Vegetable Vendor Name Role Phone Unavailable Primary Care Provider Unavailabl e Beam MANAGER SAS-C, Zebulun Primary Care Provider Debby FREEMAN, Dr. Garrido Attending Provider [phone] Debby FREEMAN, Dr. Garrido Referring Provider Dallas FREEMAN, Dr. Alva Attending Provider Dallas FREEMAN, Dr. Alva Referring Provider Beam MANAGER SAS-C, Zebulun Referring Provider Sherry Valdivia Attending Provider Sherry Valdivia Referring Provider Tannhof MANAGER SAS-C, Kalyani Primary Care Provider Beam MANAGER SAS-C, Zebulun Primary Care Provider Tannhof MANAGER SAS-C, Kalyani Attending Provider Tannhof MANAGER SAS-C, Kalyani Referring Provider Beam VSC, Zebulun Primary Care Unavailable Beam VSC, Zebulun Attending Unavailable Hema Guardado Referring Unavailable Beam VSC, Zebulun Primary Care Unavailable Hema Guardado Attending Unavailable Beam VSC, Zebulun Primary Care Unavailable Hema Guardado Attending Unavailable Hema Guardado Referring Unavailable Beam VSC, Zebulun Primary Care Unavailable Artie Haynes Attending Unavailable Artie Haynes Referring Unavailable Hema Guardado Referring Unavailable Beam VSC, Zebulun Primary Care Unavailable Hema Guardado Attending Unavailable Davehof, Kalyani Primary Care Unavailable Sherry Warren Attending Unavailable Sherry Warren Referring Unavailable Kalyani Holder Primary Care Unavailable Kalyani Holder Attending Unavailable Kalyani Holder Referring Unavailable Beam VSC, Zebulun Primary Care Unavailable Beam VSC, Zebulun Attending Unavailable Beam VSC, Zebulun Referring Unavailable Beam VSC, Zebulun Referring Unavailable Beam VSC, Zebulun Primary Care Unavailable Sherry Warren Attending Unavailable Kalyani Holder Primary Care Unavailable Kalyani Holder Attending Unavailable Allergies Allergy Classification Reported Allergen(s) Allergy Type Date of Onset Reaction(s) Facility (1 source) Environmental Allergies: Uncoded; Translations: [Environmental Allergies: Uncoded] Propensity to adverse reactions (disorder) [facility] Repository Medications Current Medications Medication Drug Class(es) Dates Sig (Normalized) Sig (Original) [id number] 200 actuat albuterol 0.09 mg/actuat metered dose [...] 12/09/2023 Active atorvastatin 40 mg oral tablet (7 sources) HMG-CoA Reductase Inhibitor Start: 07-17-2024 take [...] Active cetirizine hydrochloride 10 mg oral capsule (4 sources) Histamine-1 Receptor Antagonist Start: 07-17-2024 take 1 capsule by mouth once daily as needed Cetirizine (Zyrtec) 10 mg capsule Active 10 mg PO daily as needed July 17, 2024 12:00am Dextroamphetamine-Am phetamine 15 mg tablet (4 sources) Start: 07-17-2024 Dextroamphetam in e-Amphetamine 15 mg tablet Active 1 {tbl} PO TWICE A DAY 0 July 17, 2024 12:00am Start: 07-17-2024 Dextroamphetam ine-Amphetamine 15 mg tablet Active 1 {tbl} PO TWICE A DAY July 17, 2024 12:00am [id number] 0.3 ml EPINEPHrine 1 mg/ml auto-injector (3 sources) alpha-Adrenergic Agonist, beta-Adrenergic Agonist, Catecholamine Start: 07-16-2022 EPINEPHrine (EPIPEN) 0.3 mg/0.3 mL auto-injector Inject 0.3 mg intramuscularly. 07/16/2022 Active fluticasone propionate 0.05 mg/actuat metered dose nasal spray (7 sources) Corticosteroid Start: 07-17-2024 take 50 ug nasal route once daily Fluticasone Propionate (Flonase Allergy Relief) 50 mcg/actuation spray,suspension Active 1 NMA INTRANASAL daily July 17, 2024 12:00am administer into each nostril Start: 09-10-2022 fluticasone (F LONASE) 50 mcg/actuation nasal spray Use 1 [place] in the nose. 09/10/2022 Active ipratropium bromide 0.021 mg/actuat metered dose nasal spray (3 sources) Anticholinergic Start: 04-30-2022 Ipratropium [place] (ATROVENT) 21 mcg (0.03 %) nasal spray Use 2 Sprays in the nose. 04/30/2022 Active meloxicam 15 mg oral tablet (7 sources) Nonsteroidal Anti-inflammatory Drug Start: 07-17-2024 take 1 tablet by mouth once daily Meloxicam 15 mg tablet Active 15 mg PO daily July 17, 2024 12:00am Start: 06-06-2023 meloxicam (MOB IC) 15 mg tablet Take 15 mg by mouth. 06/06/2023 Active metFORMIN hydrochloride 500 mg oral tablet (7 sources) Biguanide Start: 07-17-2024 take 1 tablet by mouth twice daily Metformin 500 mg tablet Active 500 mg PO TWICE A DAY July 17, 2024 12:00am Start: 12-06-2023 take 1 tablet by steffanie th once daily at breakfast metFORMIN (GLUCOPHAGE) 500 [...] pantoprazole 20 mg delayed release oral tablet (7 sources) Proton Pump Inhibitor Start: 07-17-2024 take [...] Active zolpidem tartrate 10 mg oral tablet (7 sources) gamma-Aminobuty priyanka Acid-ergic Agonist Start: 07-17-2024 [...] Documented Date Episodic/Chronic Diabetes mellitus without complication (4 sources) Prediabetes; Translations: [Prediabetes] 07-17-2024 Episodic Disorders of lipid metabolism (1 source) Hyperlipidemia, unspecified; Translations: [Hyperlipidemia, unspecified] Onset: 10-20-2024 Chronic Influenza (1 source) Influenza-like illness; Translations: [Influenza due to unidentified influenza virus with other respiratory manifestations] 01-06-2024 Episodic Menopausal disorders (1 source) Menopausal and female climacteric states; Translations: [Menopausal and female climacteric states] Onset: 10-20-2024 Chronic Other acquired deformities (12 sources) Lumbar spondylolisthesis; Translations: [Spondylolisthesis, lumbar region] 07-17-2024 Episodic Other injuries and conditions due to external causes (1 source) Unspecified injury of neck, initial encounter; Translations: [Unspecified injury of neck, initial encounter] Onset: 09-23-2024 Episodic Other non-traumatic joint disorders (1 source) Pain in unspecified joint; Translations: [Pain in unspecified joint] Onset: 10-20-2024 Episodic Other screening for suspected conditions (not mental disorders or infectious disease) (3 sources) Encounter for screening for diabetes mellitus; Translations: [Encounter for screening mammogram for malignant neoplasm of breast] Onset: 03-25-2024 Episodic Spondylosis; intervertebral disc disorders; other back problems (6 sources) Degeneration of lumbar intervertebral disc; Translations: [Degenerative disc disease (DDD) of lumbar region with axial back pain without leg kulwinder] 07-17-2024 Chronic Substance-related disorders (1 source) Opioid dependence, uncomplicated; Translations: [Opioid dependence, uncomplicated] Onset: 07-08-2024 Chronic Unclassified (1 source) Low back pain, unspecified; Translations: [Low back pain, unspecified] Onset: 07-30-2024 Unclassified (1 source) Other intervertebral disc degeneration, lumbosacral region with discogenic back pain and lower extremity pain; Translations: [Other intervertebral disc degeneration, lumbosacral region with discogenic back pain and lower extremity pain] Onset: 07-19-2024 Viral infection (1 source) Disease caused by 2019-nCoV; Translations: [COVID-19] 01-07-2024 Episodic Results Test Name Value Interpretation Reference Range Facility Cerv Spine 4 or 5 Viewson Cerv Spine 4 or 5 Views [facility] Imaging Services [address] [place] [address] Cerv Spine 4 or 5 Views MR#: [id number] Acct: [id number] Name: KYMBERLY MARCANO Rep #: [id number] : 1965 F 58 From: Emmett Fermin MD PCP: SURAJ Dawn Status: REG CLI Study: Cerv Spine 4 or 5 Views Date of Exam: 09/17/24 Exam# [id number] Ordering Dr: Kalyani Holder PROCEDURE: CERV SPINE 4 OR 5 VIEWS 09/17/2024 REASON FOR EXAM: NECK INJURY TECHNIQUE: CERV SPINE 4 OR 5 VIEWS COMPARISON: None FINDINGS: There is no evidence of fracture or subluxation. There is loss of the normal cervical lordosis. There is degenerative disc disease, C3-4 through C6-7 with narrowing of the intervertebral disc spaces and marginal osteophytes. There is multilevel facet arthropathy. There is degenerative grade 1 anterolisthesis of C7 on T1 RAD/Cerv Spine 4 or 5 Views IMPRESSION: 1. No evidence of acute bony injury. 2. Multilevel degenerative disc disease. 3. Multilevel facet arthropathy with grade 1 anterolisthesis of C7 on T1. Reading Location: [id number] CC: MANAGER SASHoraceC Kalyani Holder Spray Unit Feeder: Signed Normal [facility] Shoulder min 2 Viewson 09-17 Shoulder min 2 Views [facility] Imaging Services [address] [place] [address] Shoulder min 2 Views MR#: [id number] Acct: [id number] Name: KYMBERLY MARCANOE Rep #: [id number] : 1965 F 58 From: Emmett Fermin MD PCP: SURAJ Dawn Status: REG CLI Study: Shoulder min 2 Views Date of Exam: 09/17/24 Exam# [id number] Ordering Dr: Kalyani Holder PROCEDURE: SHOULDER MIN 2 VIEWS 09/17/2024 REASON FOR EXAM: LEFT SHOULDER UPPER ARM INJURY TECHNIQUE: SHOULDER MIN 2 VIEWS COMPARISON: None FINDINGS: Four views of left shoulder show no evidence of fracture or dislocation. There is mild arthritis of the glenohumeral joint. There is moderate arthritis of the acromioclavicular joint. The periarticular soft tissues are normal. RAD/Shoulder min 2 Views IMPRESSION: DEGENERATIVE OSTEOARTHROSIS. NO ACUTE FINDINGS. Reading Location: [id number] CC: MANAGER SAS-C Kalyani Holder Spray Unit Feeder: Signed Normal [facility] Magnetic resonance imaging r eportOrdered By: Jamal Landeros on 07-26-2024 Study report [facility] Imaging Services [address] [place], [place] [address] Spine Lumbar (Routine) MR#: [id number] Acct: [id number] Name: KYMBERLY MARCANO Rep #: [id number] : 1965 F 58 From: James Landeros DO PCP: SURAJ Dawn Status: REG C LI Study:Spine Lumbar (Routine) Date of Exam: 07/25/24 Exam# [id number] Ordering Dr: Jey Warren PROCEDURE: MRI SPINE LUMBAR (ROUTINE) 07/25/2024 REASON FOR EXAM: PAIN, SPONDYLOLISTHESIS TECHNIQUE: Multiplanar and multisequence images were obtained without IV contrast administration. COMPARISON: Lumbar spine radiograph from 07/14/2024. FINDINGS: Lumbar vertebral bodies maintain a normal height. There is levoscoliosis of thelumbar spine. There is diminished signal intensity involving the discs throughout the lumbar spine and visualized lower thoracic spine related to degenerative disc disease. Multilevel disc space narrowing with endplate spurring is identified. There are Modic type 1 endplate degenerative changes at L1-L2 and Modic type 2 endplate degenerative changes at T12-L1. There is mild anterolisthesis of L4-L5. There is mild retrolisthesis of L1-L2. No acute fracture or subluxation is identified. The tip of the conus medullaris terminates at T12 and signal intensity of the included spinal cord is within normal limits. Individual levels: T11-T12: Mild disc bulge with facet arthropathy. No significant central canal stenosis or neural foraminal narrowing. T12-L1: Disc bulge with facet/flavum hypertrophy. No significant central canal stenosis or neural foraminal narrowing. L1-L2: Mild retrolisthesis with disc bulge and facet/flavum hypertrophy results in kjbb-yz-pdpxigzu central canal stenosis. There is knps-sx-bbmfjwwt bilateral neural foraminal narrowing. L2-L3: No disc herniation, central canal stenosis, or neural foraminal narrowing. Facet/flavum hypertrophy is identified. L3-L4: Mild disc bulge with facet/flavum hypertrophy. No significant central canal stenosis or left neural foraminal narrowing. Mild right neural foraminal narrowing is present. L4-L5: Grade 1 anterolisthesis with circumferential disc bulge and facet/flavum hypertrophy results in severe central canal stenosis. There is narrowing of the bilateral lateral recesses. Mild bilateralneural foraminal narrowing is present. L5-S1: Central disc extrusion with mild superior migration superimposed on a mild disc bulge results in abutment of the bilateral S1 nerves with mild to moderate central canal stenosis. No significant neural foraminal narrowing is present. Facet arthropathy is identified. MRI/Spine Lumbar (Routine) IMPRESSION: 1. At L4-L5, grade 1 anterolisthesis with disc bulge and facet/flavum hypertrophy results in severe central canal stenosis and mild bilateral neural foraminal narrowing. 2. At L5-S1, central disc extrusion with mild superior migration superimposed charlie mild disc bulge with abutment of the bilateral S1 nerves and mild to moderate central canal stenosis. 3. At L1-L2, mild retrolisthesis with disc bulge and facet/flavum hypertrophy results in szsj-gl-rhskgpch central canal stenosis. Rfhk-fu-ngjmvetd bilateral neural foraminal narrowing is present. 4. Levoscoliosis. Reading [facility] CC: MANAGER SASMonserrat Holder; MIRNA Cortez ~ Spray Unit Feeder: Signed [facility] Spine Lumbar (Routine)on Spine Lumbar (Routine) [facility] Imaging Services [address] [place] [address] Spine Lumbar (Routine) MR#: [id number] Acct: [id number] Name: KYMBERLY MARCANO Rep #: [id number] : 1965 F 58 From: Jamal Landeros DO PCP: SURAJ Dawn Status: REG CLI Study: Spine Lumbar (Routine) Date of Exam: 07/25/24 Exam# [id number] Ordering Dr: Sherry Warren PROCEDURE: MRI SPINE LUMBAR (ROUTINE) 07/25/2024 REASON FOR EXAM: PAIN, SPONDYLOLISTHESIS TECHNIQUE: Multiplanar and multisequence images were obtained without IV contrast administration. COMPARISON: Lumbar spine radiograph from 07/14/2024. FINDINGS: Lumbar vertebral bodies maintain a normal height. There is levoscoliosis of the lumbar spine. There is diminished signal intensity involving the discs throughout the lumbar spine and visualized lower thoracic spine related to degenerative disc disease. Multilevel disc space narrowing with endplate spurring is identified. There are Modic type 1 endplate degenerative changes at L1-L2 and Modic type 2 endplate degenerative changes at T12-L1. There is mild anterolisthesis of L4-L5. There is mild retrolisthesis of L1-L2. No acute fracture or subluxation is identified. The tip of the conus medullaris terminates at T12 and signal intensity of the included spinal cord is within normal limits. Individual levels: T11-T12: Mild disc bulge with facet arthropathy. No significant central canal stenosis or neural foraminal narrowing. T12-L1: Disc bulge with facet/flavum hypertrophy. No significant central canal stenosis or neural foraminal narrowing. L1-L2: Mild retrolisthesis with disc bulge and facet/flavum hypertrophy results in nosh-bl-pffxjrdg central canal stenosis. There is ifyq-im-dkgmbboe bilateral neural foraminal narrowing. L2-L3: No disc herniation, central canal stenosis, or neural foraminal narrowing. Facet/flavum hypertrophy is identified. L3-L4: Mild disc bulge with facet/flavum hypertrophy. No significant central canal stenosis or left neural foraminal narrowing. Mild right neural foraminal narrowing is present. L4-L5: Grade 1 anterolisthesis with circumferential disc bulge and facet/flavum hypertrophy results in severe central canal stenosis. There is narrowing of the bilateral lateral recesses. Mild bilateral neural foraminal narrowing is present. L5-S1: Central disc extrusion with mild superior migration superimposed on a mild disc bulge results in abutment of the bilateral S1 nerves with mild to moderate central canal stenosis. No significant neural foraminal narrowing is present. Facet arthropathy is identified. MRI/Spine Lumbar (Routine) IMPRESSION: 1. At L4-L5, grade 1 anterolisthesis with disc bulge and facet/flavum hypertrophy results in severe central canal stenosis and mild bilateral neural foraminal narrowing. 2. At L5-S1, central disc extrusion with mild superior migration superimposed on a mild disc bulge with abutment of the bilateral S1 nerves and mild to moderate central canal stenosis. 3. At L1-L2, mild retrolisthesis with disc bulge and facet/flavum hypertrophy results in woua-ts-stzqvtmi central canal stenosis. Tafo-st-jelziqyq bilateral neural foraminal narrowing is present. 4. Levoscoliosis. Reading Location: [facility] CC: SURAJ Holder; MIRNA Cortez Spray Unit Feeder: Signed Normal [facility] Orthopedic Visit Reporton Orthopedic Visit Report [facility] [address] [place] [address] [address] [place] [address] OFFICE VISIT Date of Service: 07/17/24 MR#: [id number] Acct: [id number] Name: KYMBERLY MARCANO Rep #: [id number] : 1965 Provider: MIRNA Cortez Age/Sex: 58/F Location[place] [facility] Status: Signed Intake Vital Signs 07/17/24 14:05 [...] decisions made by me, MIRNA Cortez 07/17/24 5471. Part of today???s visit was documented by [...] Status: Acute (more content not included)... Normal [facility] L/S Spine Comp/w Bending Vie wson 07-14-2024 L/S Spine Comp/w Bending Views [facility] Imaging Services [address] [place] [address] L/S Spine Comp/w Bending Views MR#: [id number] Acct: [id number] Name: KYMBERLY MARCANO Rep #: [id number] : 1965 F 58 From: Emmett Fermin MD PCP: Arpan Avilabandar [facility] MANAGER SAS-C Status: REG CLI Study: L/S Spine Comp/w Bending Views Date of Exam: 0 07/14/24 Exam# [id number] Ordering Dr: Artie Haynes MD PROCEDURE: L/S [...] anterolisthesis of L4 on L5. Reading Location: [id number] CC: Dr. Artie Haynes MD; [facility] MANAGER SAS-C Margarita Spray Unit Feeder: Signed Normal [facility] Inital Evaluation (1) - PTon 04-08-2024 Inital Evaluation (1) - PT [facility] Physical Therapy [facility] [address] [place] [address] [address] [place] [address] / REHABILITATION SERVICES INITIAL EVALUATION MR#: [id number] Acct: [id number] Name: KYMBERLY MARCANO Rep #: [id number] : 1965 58 From: Jorge Ortega DPT, OCS, CSCS Referring Dr.: Dr. Hema Guardado MD Status: REG RCR Insurance[facility] Patient[facility] Visit Information Visit Information Visit Information: KYMBERLY MARCANO is a 58 year old F referred to Physical Therapy by Dr. Hema Guardado MD with a diagnosis of Lumbar spindylosis. Date of Evaluation: 04/08/24 Physical Therapist: Jorge Ortega DPT, OCS, CSCS Visit Plan Frequency: 2-3x /Week [...] Sleep is Ok with ambien. 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 For Medicare only, by signing this I certify the plan of care. Please let me know if there are questions or concerns regarding this plan of care. Physician Signature: Date:__ 04/08/24 9105 CC: Dr. Hema Guardado MD; Alejandra MARROQUIN NP (more content not included)... Normal [facility] L3410.9998on 03-17-2024 [facility] [place]. COMMENT Normal . [facility] Comment on above: Order Comment: [id number] MEDTOX Result Comment: Test Ordered: [id number] 6+Oxycodone-Bund Amphetamines, Urine ng/mL UI Reference Range: . Please refer to the following specimen for additional lab results. Please refer to [phone] for results. Amphetamine test includes Amphetamine and [...] test will be discontinued. Please contact your [facility] account development representative for suggested replacement test options. Performed at: - [facility] [id number] Municipal Engineer: Aman Ryan PhD, Phone: [phone] Performed at: - [facility] [address] [place], [place] [id number] Municipal Engineer: Олег Dixon PhD, Phone: [phone] Performed By: #### L 3410.9998 #### [facility] [address] [place], [address] [facility]. COMMENT Normal . [facility] Comment on above: Order Comment: UNKNO WN Result Comment: Test Ordered: [id number] Tramadol, Urine Tramadol Screen, Urine Note: ng/mL UI See Final Results Reference Range: Rkrobn=585 Tramadol Positive [A ] UI Reference Range: Zpoeba=999 Tramadol Conf, MS, UR 1610 ng/mL UI Reference Range: Rfzjef=904 Tramadol detected; this finding can be consistent with use of medications that include Ultram, Topalgic, Tradol, Zydol, or generic formulations. Drugs listed are account development representative of common sources of the [...] is inconsistent with an expected outcome. Email: [email or web address] Performed at: [facility] [id number] Municipal Engineer: Олег Dixon PhD, Phone: [phone] Performed at: [facility] [id number] Municipal Engineer: Aman Ryan PhD, Phone: [phone] Performed By: #### L 505.5000, L505.6200, L3410.9998 #### [facility] [address] [place], [address] L3410.9998on 03-15-2024 [facility]. COMMENT Normal . [facility] Comment on above: Order Comment: [id number] TRAMADOL Result Comment: Test Ordered: [id number] Tramadol, Urine Tramadol Screen, Urine Note: ng/mL UI See Final Results Reference Range: Varhft=167 Tramadol Positive [A ] UI Reference Range: Mzpeqn=641 Tramadol Conf, MS, UR 9225 ng/mL UI Reference Range: Qesfza=350 Tramadol detected; this finding can be consistent with use of medications that include Ultram, Topalgic, Tradol, Zydol, or generic formulations. Drugs listed are account development representative of common sources of the [...] is inconsistent with an expected outcome. Email: [email or web address] Performed at: [facility] [address] [place], [place] [id number] Municipal Engineer: Олег Dixon PhD, Phone: [phone] Performed at: [facility] [address] [id number] Municipal Engineer: Aman Ryan PhD, Phone: [phone] Performed By: #### L 505.5000, L505.6200, L3410.9998 #### [facility] [address] [place], [address] Urine Drug Screen (VISTA)on 03-11-2024 AMPHETAMINES Negative Normal <1000 ng/mL [facility] Comment on above: Order Comment: UNKNO WN Performed By: #### L 505.5000, L505.6200, L3410.9998 #### [facility] [address] [place], [address] BARBITIURATES Negative Normal < 200 ng/mL [facility] Comment on above: Order Comment: UNKNO WN Performed By: #### L 505.5000, L505.6200, L3410.9998 #### [facility] [address] [place], [address] BENZODIAZIPINE Negative Normal < 200 ng/mL [facility] Comment on above: Order Comment: UNKNO WN Performed By: #### L 505.5000, L505.6200, L3410.9998 #### [facility] [address] [place], [address] COCAINE Negative Normal < 300 ng/mL [facility] Comment on above: Order Comment: UNKNO WN Performed By: #### L 505.5000, L505.6200, L3410.9998 #### [facility] [address] [place], [address] ECSTACY Negative Normal < 500 ng/mL [facility] Comment on above: Order Comment: UNKNO WN Performed By: #### L 505.5000, L505.6200, L3410.9998 #### [facility] [address] [place], [address] METHADONE Negative Normal < 300 ng/mL [facility] Comment on above: Order Comment: UNKNO WN Performed By: #### L 505.5000, L505.6200, L3410.9998 #### [facility] [address] [place], [address] OPIATES Negative Normal < 300 ng/mL [facility] Comment on above: Order Comment: UNKNO WN Performed By: #### L 505.5000, L505.6200, L3410.9998 #### [facility] [address] [place], [address] PCP Negative Normal < 25 ng/mL [facility] Comment on above: Order Comment: UNKNO WN Performed By: #### L 505.5000, L505.6200, L3410.9998 #### [facility] [address] [place], [address] THC Negative Normal < 50 ng/mL [facility] Comment on above: Order Comment: UNKNO WN Performed By: #### L 505.5000, L505.6200, L3410.9998 #### [facility] [address] [place], [address] VISTA UDS PH 8 Normal [facility] Comment on above: Order Comment: UNKNO WN Performed By: #### L 505.5000, L505.6200, L3410.9998 #### [facility] [address] [place], [address] Oxycodone Urine Drug Screeno n 03-09-2024 OXY DRG SCREEN Negative Normal <100 ng/mL [facility] Comment on above: Order Comment: UNKNO WN Performed By: #### L 505.5000, L505.6200, L3410.9998 #### [facility] [address] [place], [address] DRUG CONFIRM Normal [facility] Comment on above: Order Comment: UNKNO WN [...] By: #### L 505.5000, L505.6200, L3410.9998 #### [facility] [address] [place], [address] Urine Drug Screen (VISTA)on 03-09-2024 AMPHETAMINES Positive Abnormal <1000 ng/mL [facility] Comment on above: Order Comment: UNKNO WN Performed By: #### L 505.5000, L505.6200, L3410.9998 #### [facility] [address] [place], [address] BARBITIURATES Negative Normal < 200 ng/mL [facility] Comment on above: Order Comment: UNKNO WN Performed By: #### L 505.5000, L505.6200, L3410.9998 #### [facility] [address] [place], [address] BENZODIAZIPINE Negative Normal < 200 ng/mL [facility] Comment on above: Order Comment: UNKNO WN Performed By: #### L 505.5000, L505.6200, L3410.9998 #### [facility] [address] [place], [address] COCAINE Negative Normal < 300 ng/mL [facility] Comment on above: Order Comment: UNKNO WN Performed By: #### L 505.5000, L505.6200, L3410.9998 #### [facility] [address] [place], [address] ECSTACY Negative Normal < 500 ng/mL [facility] Comment on above: Order Comment: UNKNO WN Performed By: #### L 505.5000, L505.6200, L3410.9998 #### [facility] [address] [place], [address] METHADONE Negative Normal < 300 ng/mL [facility] Comment on above: Order Comment: UNKNO WN Performed By: #### L 505.5000, L505.6200, L3410.9998 #### [facility] [address] [place], [address] OPIATES Negative Normal < 300 ng/mL [facility] Comment on above: Order Comment: UNKNO WN Performed By: #### L 505.5000, L505.6200, L3410.9998 #### [facility] [address] [place], [address] PCP Negative Normal < 25 ng/mL [facility] Comment on above: Order Comment: UNKNO WN Performed By: #### L 505.5000, L505.6200, L3410.9998 #### [facility] [address] [place], [address] THC Negative Normal < 50 ng/mL [facility] Comment on above: Order Comment: UNKNO WN Performed By: #### L 505.5000, L505.6200, L3410.9998 #### [facility] [address] [place], [address] VISTA UDS PH 5 Normal [facility] Comment on above: Order Comment: UNKNO WN Performed By: #### L 505.5000, L505.6200, L3410.9998 #### [facility] [address] [place], [address] CBC W/Diff, Automatedon 02-12 Absolute Lymph 1.55 X10 3/uL Normal 0.83-4.51 [facility] Comment on above: Performed By: #### L 505.5000, L505.6200, L3410.9998 #### [facility] [address] [place], [address] Absolute Neut 4.2 X10 3/uL Normal 2.0-7.7 [facility] Comment on above: Performed By: #### L 505.5000, L505.6200, L3410.9998 #### [facility] [address] [place], [address] Basophils/100 WBC (Bld) 0.5 % Normal 0-1 [facility] Comment on above: Performed By: #### L 505.5000, L505.6200, L3410.9998 #### [facility] [address] [place], [address] Eosinophils/100 WBC (Bld) 1.7 % Normal 0-5 [facility] Comment on above: Performed By: #### L 505.5000, L505.6200, L3410.9998 #### [facility] [address] [place], [address] Erythrocyte distribution width (RBC) [Ratio] 12.2 % Normal 11.6-14.6 [facility] Comment on above: Performed By: #### L 505.5000, L505.6200, L3410.9998 #### [facility] [address] [place], [address] Hematocrit (Bld) [Volume fraction] 40.8 % Normal 37-47 [facility] Comment on above: Performed By: #### L 505.5000, L505.6200, L3410.9998 #### [facility] [address] [place], [address] Hemoglobin (Bld) [Mass/Vol] 13.0 g/dL Normal 12.0-15.0 [facility] Comment on above: Performed By: #### L 505.5000, L505.6200, L3410.9998 #### [facility] [address] [facility] [place], [address] IG% 0.200 Normal 0.0-0.9 [facility] Comment on above: Result Comment: IG% - Immature Granulocytes (promyelocytes, myelocytes and metamyelocytes) > 1% indicates that a LEFT SHIFT is Present. Performed By: #### L 505.5000, L505.6200, L3410.9998 #### [facility] [address] [place], [address] Lymphocytes/100 WBC (Bld) 23.8 % Normal 19-41 [facility] Comment on above: Performed By: #### L 505.5000, L505.6200, L3410.9998 #### [facility] [address] [place], [address] MCH (RBC) [Entitic mass] 29.2 pg Normal 27.0-32.0 [facility] Comment on above: Performed By: #### L 505.5000, L505.6200, L3410.9998 #### [facility] [address] [place], [address] MCHC (RBC) [Mass/Vol] 31.9 g/dL Low 32-36 [facility] Comment on above: Performed By: #### L 505.5000, L505.6200, L3410.9998 #### [facility] [address] [place], [address] MCV (RBC) [Entitic vol] 91.7 fL Normal 81-99 [facility] Comment on above: Performed By: #### L 505.5000, L505.6200, L3410.9998 #### [facility] [address] [place], [address] Monocytes/100 WBC (Bld) 10.3 % High 0-10 [facility] Comment on above: Performed By: #### L 505.5000, L505.6200, L3410.9998 #### [facility] [address] [place], [address] Neutrophils/100 WBC (Bld) 63.5 % Normal 47-70 [facility] Comment on above: Performed By: #### L 505.5000, L505.6200, L3410.9998 #### [facility] [address] [place], [address] Nucleated RBC (Bld) [#/Vol] 0 10*3/uL Normal 0-5 [facility] Comment on above: Performed By: #### L 505.5000, L505.6200, L3410.9998 #### [facility] [address] [place], [address] Platelet mean volume (Bld) [Entitic vol] 9.4 fL Normal 6.2-12.0 [facility] Comment on above: Performed By: #### L 505.5000, L505.6200, L3410.9998 #### [facility] [address] [place], [address] Platelets (Bld) [#/Vol] 258 10*3/uL Normal 150-450 [facility] Comment on above: Performed By: #### L 505.5000, L505.6200, L3410.9998 #### [facility] [address] [place], [address] RBC (Bld) [#/Vol] 4.45 10*6/uL Normal 4.2-5.4 [facility] Comment on above: Performed By: #### L 505.5000, L505.6200, L3410.9998 #### [facility] [address] [place], [address] RDW SD 41.1 fl Normal 35.1-43.9 [facility] Comment on above: Performed By: #### L 505.5000, L505.6200, L3410.9998 #### [facility] [address] [place], [address] WBC (Bld) [#/Vol] 6.5 10*3/uL Normal 4.4-11.0 [facility] Comment on above: Performed By: #### L 505.5000, L505.6200, L3410.9998 #### [facility] [address] [place], [address] Comprehensive Metabolic Prof [facility] 03-04-2024 Albumin [Mass/Vol] 3.6 g/dL Normal 3.2-5.0 [facility] Comment on above: Performed By: #### L 505.5000, L505.6200, L3410.9998 #### [facility] [address] [place], [address] Albumin/Globulin [Mass ratio] 0.9 {ratio} Normal 0.9-2.4 [facility] Comment on above: Performed By: #### L 505.5000, L505.6200, L3410.9998 #### [facility] [address] [place], [address] ALK P 91 U/L Normal 45-117 [facility] Comment on above: Performed By: #### L 505.5000, L505.6200, L3410.9998 #### [facility] [address] [place], [address] ALT [Catalytic activity/Vol] 23 U/L Normal 13-56 [facility] Comment on above: Performed By: #### L 505.5000, L505.6200, L3410.9998 #### [facility] [address] [place], [address] AST [Catalytic activity/Vol] 21 U/L Normal 15-37 [facility] Comment on above: Performed By: #### L 505.5000, L505.6200, L3410.9998 #### [facility] [address] [place], [address] Bilirubin [Mass/Vol] 0.50 mg/dL Normal 0.20-1.00 [facility] Comment on above: Result Comment: For patients on eltrombopag therapy, use of Dimension [place] TBIL is not recommended. Performed By: #### L 505.5000, L505.6200, L3410.9998 #### [facility] [address] [place], [address] BUN/CRE 30.4 RATIO High 10-20 [facility] Comment on above: Performed By: #### L 505.5000, L505.6200, L3410.9998 #### [facility] [address] [place], [address] CA,Total 9.4 mg/dL Normal 8.5-10.1 [facility] Comment on above: Performed By: #### L 505.5000, L505.6200, L3410.9998 #### [facility] [address] [place], [address] Chloride [Moles/Vol] 106 mmol/L Normal 98-107 [facility] Comment on above: Performed By: #### L 505.5000, L505.6200, L3410.9998 #### [facility] [address] [place], [address] CO2 [Moles/Vol] 23.0 mmol/L Normal 21.0-32.0 [facility] Comment on above: Performed By: #### L 505.5000, L505.6200, L3410.9998 #### [facility] [address] [place], [address] Creatinine [Mass/Vol] 0.69 mg/dL Normal 0.55-1.02 [facility] Comment on above: Result Comment: The validity of the calculated GFR GFRAA in patients over 70 years has not been determined. Clinical correlation is essential. Performed By: #### L 505.5000, L505.6200, L3410.9998 #### [facility] [address] [place], [address] EST GFR - AA 113 mL/min Normal >60 [facility] Comment on above: Result Comment: Afri can Malaysian GFR Calc Performed By: #### L 505.5000, L505.6200, L3410.9998 #### [facility] [address] [place], [address] GAP 8 Normal 5-15 [facility] Comment on above: Performed By: #### L 505.5000, L505.6200, L3410.9998 #### [facility] [address] [place], [address] GFR/1.73 sq M.predicted among non-blacks MDRD (S/P/Bld) [Vol rate/Area] 93 mL/min/{1.73_m2} Normal >60 [facility] Comment on above: Result Comment: Non- GFR Calc Performed By: #### L 505.5000, L505.6200, L3410.9998 #### [facility] [address] [place], [address] Globulin (S) [Mass/Vol] 3.8 g/dL Normal 2.2-4.2 [facility] Comment on above: Performed By: #### L 505.5000, L505.6200, L3410.9998 #### [facility] [address] [place], [address] Glucose [Mass/Vol] 97 mg/dL Normal 74-106 [facility] Comment on above: Performed By: #### L 505.5000, L505.6200, L3410.9998 #### [facility] [address] [place], [address] Potassium [Moles/Vol] 4.1 mmol/L Normal 3.5-5.1 [facility] Comment on above: Performed By: #### L 505.5000, L505.6200, L3410.9998 #### [facility] [address] [place], [address] Sodium [Moles/Vol] 138 mmol/L Normal 136-145 [facility] Comment on above: Performed By: #### L 505.5000, L505.6200, L3410.9998 #### [facility] [address] [place], [address] T PROT 7.4 g/dL Normal 6.4-8.2 [facility] Comment on above: Performed By: #### L 505.5000, L505.6200, L3410.9998 #### [facility] [address] [place], [address] Urea nitrogen [Mass/Vol] 21 mg/dL High 7-18 [facility] Comment on above: Performed By: #### L 505.5000, L505.6200, L3410.9998 #### [facility] [address] [place], [address] Lipid Profileon 03-04-2024 Cholesterol [Mass/Vol] 115 mg/dL Normal 200 [facility] Comment on above: Result Comment: <200 mg/dL Desirable 200-240 mg/dL Borderline >240 mg/dL High Risk Performed By: #### L 505.5000, L505.6200, L3410.9998 #### [facility] [address] [place], [address] Cholesterol in HDL [Mass/Vol] 71 mg/dL Normal [facility] Comment on above: Result Comment: The drugs N-Acetylcysteine and Metamizole may falsely depress this assay. Reference Range HDL <40 mg/dL Low HDL Cholesterol HDL >or= 60 mg/dL High HDL Cholesterol Performed By: #### L 505.5000, L505.6200, L3410.9998 #### [facility] [address] [place], [address] Cholesterol in LDL [Mass/Vol] 35 mg/dL Normal 0-130 [facility] Comment on above: Performed By: #### L 505.5000, L505.6200, L3410.9998 #### [facility] [address] [place], [address] Cholesterol in VLDL [Mass/Vol] 9 mg/dL Normal 5-40 [facility] Comment on above: Performed By: #### L 505.5000, L505.6200, L3410.9998 #### [facility] [address] [place], [address] Triglyceride [Mass/Vol] 44 mg/dL Normal [facility] Comment on above: Result Comment: The drugs N-Acetylcysteine and Metamizole may falsely depress this assay. Serum Triglycerides Reference Interval Normal <150 mg/dL Borderline high 150 - 199 mg/dL High 200 - 499 mg/dL Very High > or = 500 mg/dL Performed By: #### L 505.5000, L505.6200, L3410.9998 #### [facility] [address] [place], [address] Thyroid Stim Hormone (TSH)on 03-04-2024 TSH 1.470 uIU/mL Normal 0.358-3.740 [facility] Comment on above: Performed By: #### L 505.5000, L505.6200, L3410.9998 #### [facility] [address] [place], [address] CNPJulieta 01-07-2024 [facility] KYMBERLY MARCANO ([id number]) 1965 F Date Time Provider Department 01/07/24 JESSICA ANN [facility] During your visit today, we recorded the following information about you: Jessica Ann APRN.QUILTER FIXER 01/07/2024 7:30 AM Signed Please notify covid [...] (FLONASE) 50 mcg/actuation nasal spray Use 1 [place] in the nose. - Ipratropium [place] (ATROVENT) 21 mcg (0.03 %) nasal spray [...] Encounter Status:Closed by BONILLA LIM on 01/07/24 [facility] ROMAINEOVjosi 01-06-2024 CNOV Office Visit (UCWSTR ) KYMBERLY MARCANO ([id number]) 1965 F Date Time Provider Department 01/06/24 12:00 PM CARLOS PARIS [facility] During your visit today, we recorded the [...] in a row. Newly moved to the [facility]. PAST MEDICAL HISTORY Diagnosis Date ADHD (attention [...] (FLONASE) 50 mcg/actuation nasal spray Use 1 [place] in the nose. Ipratropium [place] (ATROVENT) 21 mcg (0.03 %) nasal spray [...] AND RSV PCR, ROUTINE [SQCVFLRS] Order #: [id number]. #:[id number] Prescriptions as of 01/06/2024 - albuterol HFA [...] (FLONASE) 50 mcg/actuation nasal spray Use 1 [place] in the nose. - Ipratropium [place]view (ATROVENT) 21 mcg (0.03 %) nasal spray [...] Service: OFFICE/OUTPAT (more content not included)... Normal [facility] COVID AND INFLUENZA A/B AND RSV PCR, ROUTINEon 01-06-2024 SARS-CoV-2 (COVID-19) RNA MASON+probe Ql (Unsp spec) SARS-COV-2 (AGENT OF COVID-19) RNA: Detected INFLUENZA A RNA: Not detected INFLUENZA B RNA: Not detected RESPIRATORY SYNCYTIAL VIRUS (RSV) RNA: Not detected Abnormal [facility] Comment on above: Performed By: #### C VFLRS #### [facility] CLIA [id number] [address] [place] [address] [place] Vital Signs Date Time Vital Sign Value Performing Clinician Facility 07-17-2024 14:05-0400 Body height 170.18 cm Zebulun Beam [employer]NAGER [employer] Work Phone: [facility] 07-17-2024 14:05-0400 Body mass index (BMI) [Ratio] 27.1 kg/m2 Zebulun Beam MANAGER [employer] Work Phone: [facility] 07-17-2024 14:05-0400 Body weight 78.47 kg Zebulun Beam MANAGER [employer] Work Phone: [facility] 01-06-2024 11:56-0500 Body temperature 98.01 [degF] Carlos Paris MD Work Phone: [facility] 01-06-2024 11:56-0500 Body weight 70.6 kg Carlos Paris MD Work Phone: [facility] 01-06-2024 11:56-0500 Diastolic blood pressure 68 mm[Hg] Carlos Paris MD Work Phone: [facility] 01-06-2024 11:56-0500 Heart rate 100 /min Carlos Paris MD Work Phone: [facility] 01-06-2024 11:56-0500 Respiratory rate 18 /min Carlos Paris MD Work Phone: [facility] 01-06-2024 11:56-0500 SaO2% (BldA) [Mass fraction] 95 % Carlos Paris MD Work Phone: [facility] 01-06-2024 11:56-0500 Systolic blood pressure 124 mm[Hg] Carlos Paris MD Work Phone: [facility] Encounters Encounter Date Encounter Type Care Provider Facility Start: 10-20-2024 ambulatory Kalyani Acostayaritza Facility :[facility] Start: 09-17-2024 End: 09-17-2024 ambulatory Zebulun Beam MANAGER [employer] Work Phone: [facility] Start: 09-17-2024 End: 09-17-2024 Patient encounter procedure Kalyani Holder MANAGER [employer] Work Phone: Start: 09-17-2024 End: 09-17-2024 ambulatory Kalyani [facility] Facility:[facility] Start: 07-25-2024 End: 07-25-2024 ambulatory Zebulun Beam MANAGER [employer] Work Phone: [facility] Work Phone: Start: 07-25-2024 End: 07-25-2024 Patient encounter procedure Sherry BRADLEY -[facility] - [facility] Work Phone: Start: 07-25-2024 End: 07-25-2024 ambulatory Kalyani Holder Facility:[facility] Start: 07-17-2024 End: 07-17-2024 Patient encounter procedure Sherry BRADLEY -[facility] Work Phone: Start: 07-17-2024 End: 07-17-2024 ambulatory Zebulun Beam MANAGER [employer] Work Phone: [facility] Work Phone: Start: 07-14-2024 End: 07-14-2024 ambulatory Zebulun Beam MANAGER [employer] Work Phone: [facility] Work Phone: Start: 07-14-2024 End: 07-14-[address] Artie Haynes MD -[facility] Work Phone: Start: 07-14-2024 End: 07-14-2024 ambulatory Zebulun Beam VSC Facility:[facility] Start: 04-08-2024 End: 04-08-[address] Hema Guardado MD -Physical Therapy Work Phone: Start: 04-08-2024 End: 04-08-2024 ambulatory Zebulun Beam VSC Facility:[facility] Start: 03-30-2024 ambulatory Zebulun Beam VSC Facili ty:[facility] Start: 03-11-2024 End: 03-11-2024 ambulatory Hema Guardado Facility:[facility] Start: 03-09-2024 End: 03-09-2024 ambulatory Hema Guardado Facility:[facility] Start: 03-04-2024 End: 03-04-2024 ambulatory Zebulun Beam VSC Facility:[facility] Start: 01-11-2024 End: 01-11-2024 ambulatory Nicole Weir RN NURSE [employer]ICAL [employer]SR Comment on above: Covid Positive Start: 01-07-2024 End: 01-07-2024 Telephone encounter Jessica Ann APRN.CNP Work Phone: [facility] Comment on above: Results Start: 01-06-2024 End: 01-06-2024 ambulatory Facility:[facility] Start: 01-06-2024 End: 01-06-2024 Office outpatient new 30 minutes Carlos Paris MD Work Phone: [facility] Comment on above: Influenza-like illne ss (Primary Dx) Procedures Date Procedure Procedure Detail Performing Clinician Start: 09-17-2024 Plain X-ray of shoulder Zebulun Beam MANAGER [employer] Work Phone: Start: 09-17-2024 X-ray of cervical spine Zebulun Beam MANAGER [employer] Work Phone: Start: 07-25-2024 MRI of lumbar spine [place] Beam MANAGER [employer] Work Phone: Start: 07-14-2024 Complete x-ray serie s of lumbosacral spine including bending views Zebulun Beam MANAGER [employer] Work Phone: Start: 07-16-2022 Lipid 1996 panel - S danny or Plasma Carlos Paris MD Work Phone: Plan of Treatment Date Care Activity Detail Author Start: 09-21-2029 Urine microalbumin profile DTaP,Tdap,Td Vaccine (2 - Td or Tdap) [facility] Start: 07-17-2027 Lipid panel Lipid Screening [facility] Start: 04-29-2026 Diabetes Screening Diabetes Screening [facility] Start: 10-13-2023 Covid-19 Vaccine ( season) Covid-19 Vaccine ( season) [facility] Start: 10-13-2023 Influenza vaccination Influenza Vaccine (#1) [facility] Start: 04-09-2023 Screening for malignant neoplasm of breast Mammogram Screening [facility] Start: 11-04-2011 Screening for malignant neoplasm of colon [facility] Start: 11-04-1987 Screening for malignant neoplasm of cervix Cervical Cancer Screening [facility] Start: 1985 Hepatitis B Vaccine (1 of 3 - 19+ 3-dose series) Hepatitis B Vaccine (1 of 3 - 19+ 3-dose series) [facility] Start: 1984 Anxiety Screening Anxiety Screening [facility] Start: 1984 Depression Screening Depression Screening [facility] Start: 1984 Hepatitis C screening Hepatitis C Screening [facility] Start: 1984 HIV screening HIV Screening [facility] COVID & INFLUENZA A/ B & RSV PCR, ROUTINE COVID & INFLUENZA A/B & RSV PCR, ROUTINE Microbiology Routine Influenza-like illness 01/06/2024 12:18 PM EST [facility] Work Phone: MR Lumbar spine [facility] Patient referral [facility] Work Phone: Immunizations Immunization Date Immunization Notes Care Provider Fa cility 12-26-2021 influenza virus vacc ine, unspecified formulation Carlos Paris MD Work Phone: [facility] Payers Date Payer Category Payer Self-pay 2024 Unknown [id number] 2024 Private Health Insurance [employer] HU[employer]ICA[employer] [facility] [id number] 2024-Present [address] [address] [place] [address] Medicaid [id number] 2024 Medicaid [id number] Unknown [id number] 62 Unknown [id number] 62 Unknown [id number] 62 Unknown [id number] 62 Unknown [id number] 62 Unknown [id number] 62 Unknown [id number] 62 Unknown [id number] 62 Unknown [id number] 62 Unknown [id number] 62 Social History Date Type Detail Facility Tobacco smoking status PAIS Tobacco smoking consumption unknown [facility] Start: 1965 Sex assigned at Not on file [facility] Gender identity Not on file [facility] in Start: 07-17-2024 Tobacco smoking status NHIS Never smoked tobacco (finding) [facility] Start: 1965 Sex Assigned At Female W [facility] Clinical Notes 01-06-2024 to 09-17-2024 Note Date & Type Note Facility 09-17-2024 Radiology Diagnostic study note [facility] Imaging Services [address] [place], [place] [address] Cerv Spine 4 or 5 Views MR#: [id number] Acct: [id number] Name: KYMBERLY MARCANO Rep #: [id number] : 1965 F 58 From: Sarkis Fermin MD PCP: SURAJ Dawn Status: REG C VLAD Study:Cerv Spine 4 or 5 Views Date of Exam: 09/17/24 Exam# [id number] Ordering Dr: Kalyani Holder PROCEDURE: CERV SPINE 4 OR 5 VIEWS 09/17/2024 REASON FOR EXAM: NECK INJURY TECHNIQUE: CERV SPINE 4 OR 5 VIEWS COMPARISON: None FINDINGS: There is no evidence of fracture or subluxation. There is loss of the normal cervical lordosis. There is degenerative disc disease, C3-4 through C6-7 with narrowing of the intervertebral disc spaces and marginal osteophytes. There is multilevel facet arthropathy. There is degenerative grade 1 anterolisthesis of C7 on T1 RAD/Cerv Spine 4 or 5 Views IMPRESSION: 1. No evidence of acute bony injury. 2. Multilevel degenerative disc disease. 3. Multilevel facet arthropathy with grade 1 anterolisthesis of C7 on T1. Reading Location: [facility] CC: MANAGER SASMonserrat Holder ~ Spray Unit Feeder: Signed [facility] Work Phone: 09-17-2024 Radiology Diagnostic study note [facility] Imaging Services [address] [place] [address] Shoulder min 2 Views MR#: [id number] Acct: [id number] Name: KYMBERLY MARCANO Rep #: [id number] : 1965 F 58 From: Sarkis Fermin MD PCP: SURAJ Dawn Status: REG C LI Study:Shoulder min 2 Views Date of Exam: 09/17/24 Exam# [id number] Ordering Dr: Kalyani Holder PROCEDURE: SHOULDER MIN 2 VIEWS 09/17/2024 REASON FOR EXAM: LEFT SHOULDER UPPER ARM INJURY TECHNIQUE: SHOULDER MIN 2 VIEWS COMPARISON: None FINDINGS: Four views of left shoulder show no evidence of fracture or dislocation. There is mild arthritis of the glenohumeral joint. There is moderate arthritis of the acromioclavicular joint. The periarticular soft tissues are normal. RAD/Shoulder min 2 Views IMPRESSION: DEGENERATIVE OSTEOARTHROSIS. NO ACUTE FINDINGS. Reading Location: [facility] CC: SURAJ Holder ~ Spray Unit Feeder: Signed [facility] Work Phone: 07-17-2024 Evaluation note Diagnosis Onset Date Resolution Degenerative disc disease (DDD) of lumbar region with axial back pain witho acute July 17, 2024 1:53pm Spondylolisthesis at L1-L2 level acute July 17, 2024 1:53pm Spondylolisthesis at L4-L5 level acute July 17, 2024 1:53pm [facility] Work Phone: 1(878) 497-893306-04-2025 Radiology Diagnostic study note [facility] Imaging Services [address] [place] [address] L/S Spine Comp/w Bending Views MR#: [id number] Acct: [id number] Name: KYMBERLY MARCANO Rep #: [id number] : 1965 F 58 From: Sarkis Fermin MD PCP: Alejandra Avila [facility] MA[facility] [employer] Status: REG CLI Study:L/S Spine Comp/w Bending Views Date of Exam: 07/14/24 Exam# [id number] Ordering Dr: Artie Haynes MD PROCEDURE: L/S [...] and anterolisthesis of L4on L5. Reading Location: [id number] CC: Dr. Artie Haynes MD; [facility] [employer] Margarita ~ Spray Unit Feeder: Signed [facility] Work Phone: [phone]) 176-457611-30-2024 Telephone encounter Note* Telephone Encounter - Nicole Weir RN - 01/11/2024 1:38 PM EST Reason for Call: The patient was tested for Covid on 01/06/24 at [facility]. Her test waspositive and she was started [...] 5. BREATHING DIFFICULTY: no difficulty breathing 6. UPECQD-[id number]:feels fine, purple skin just noticed 7. OTHER SYMPTOMS: cough 8. COVID-19 DIAGNOSIS:seen in [facility] on 01/06/24 9. COVID-19 EXPOSURE:not asked 10. COVID-19 VACCINE: not asked 11. HIGH RISK DISEASE: asthma 12. : N/A 13. O2 SATURATION MONITOR: Pulse oximeter is still packed in moving boxes Protocols used: COVID-19 - Persisting Symptoms Follow-up [id number], COVID-19 - Diagnosed or Bkvvjcoep-OLINY-UL [facility]11-30-2024 Miscellaneous Notes* Telephone Encounter - Nicole Weir RN - 01/11/2024 1:38 PM EST Reason for Call: The patient was tested for Covid on 01/06/24 at [facility]. Her test waspositive and she was started [...] 5. BREATHING DIFFICULTY: no difficulty breathing 6. PIDCIN-AUIO-VLEWS:feels fine, purple skin just noticed 7. OTHER SYMPTOMS: cough 8. COVID-19 DIAGNOSIS:seen in [facility] on 01/06/24 9. COVID-19 EXPOSURE:not asked 10. COVID-19 VACCINE: not asked 11. HIGH RISK DISEASE: asthma 12. : N/A 13. O2 SATURATION MONITOR: Pulse oximeter is still packed in moving boxes Protocols used: COVID-19 - Persisting Symptoms Follow-up [id number], COVID-19 - Diagnosed or [id number]-[id number] [facility] Telephone encounter Note * Telephone Encounter - Bonilla Lim MA - 01/07/2024 7:49 AM EST Patient given results and verbalized understanding of instructions given. Bonilla Lim MA [facility]11-26-2024 Miscellaneous Notes* Telephone Encounter - Bonilla [...] breath go to ER documented in [facility]11-[facility]24 Telephone encounter Note * Telephone Encounter - Jessica Ann APRN.CNP - 01/07/2024 7:23 AM EST Please notify covid test positive. Will send paxlovid to pharmacy. Have hold lipitor for 2 weeks. Quarantine until 24 hours fever free Push fluids and otc cough/cold medication advised. -If you experience chest pain/shortness of breath go to ER [facility]11-25-2024 NoteHNO ID: [id number] Author: CARLOS PARIS MD Service: ? Author [...] in a row. [place] PAST MEDICAL HISTORY Diagnosis Date ADHD (attention [...] (FLONASE) 50 mcg/actuation nasal spray Use 1 [place] in the nose. Ipratropium [place] (ATROVENT) 21 mcg (0.03 %) nasal spray [...] function within the last year. Carlos Paris, [facility]11-25-2024 History of Present illness Narrative* Carlos Paris [...] in a row. [facility]ly [facility] the [facility]. PAST MEDICAL HISTORY Diagnosis Date ADHD (attention [...] (FLONASE) 50 mcg/actuation nasal spray Use 1 [place] in the nose. Ipratropium [place] (ATROVENT) 21 mcg (0.03 %) nasal spray [...] year. Carlos Paris MD documented [facility]* Diagnosis Influenza-like illness- Primary Influenza with other respiratory manifestations documented in this encounter [facility] note* Diagnosis COVID- Primary documented in this encounter [facility] noteNo assessment information availableS[facility] Work Phone: Reason for referral (narrative)No reason for referral information availableSutter California Pacific Medical Center Work Phone: Summary Purpose Family History No [...] 1:53pm Spondylolisthesis at L4-L5 level July 1:53pm Chief Complaint Admit Date LUMBAR SPONDYLOSIS, RX HERE March 12:46pm LUMBAR SPINE July 17, 2024 1:53p m LUMBAR PAIN July 25, 2024 11:0 3am Chief Complaint Admit Date LUMBAR SPINE July 17, 2024 1:53p m LUMBAR PAIN July 25, 2024 11:0 3am NECK,LEFT SHOULDER PAIN September 17, 2024 4:28pm Additional Source Comments Source Comments (unrecognize d section and content) In the event this informatio n is protected by the Federal Confidentiality of Alcohol and Drug Abuse Patient Records regulations: The Federal rules restrict any use of the information to criminally investigate or prosecute any alcohol or drug abuse patient.[facility] HospitalIn the event this information is protected by the Federal Confidentiality of Alcohol and Drug Abuse Patient Records regulations: The Federal rules restrict any use of the information to criminally investigate or prosecute any alcohol or drug abuse patient.[facility] HospitalIn the event this information is protected by the Federal Confidentiality of Alcohol and Drug Abuse Patient Records regulations: The Federal rules restrict any use of the information to criminally investigate or prosecute any alcohol or drug abuse patient.[facility] Reason for Visit (unrecogniz ed section and content) Reason Comments Cough head and chest conge stion, bodyaches x 1 day Reason Comments Results Reason Comments Covid Positive INFORMATION SOURCE (unrecogn ized section and content) DATE CREATED AUTHOR 01/08/2024 [facility] DATE CREATED AUTHOR AUTHOR'S ORGANIZ ATION 10/22/2024 [facility] Care Teams (unrecognized sec tion and content) Team Status: Active Member Role Status Dates Zebulun Beam VSC, MANAGER [employer] Primary Care Provider Active Team Status: Inactive Member Role Status Dates Zebulun Beam VSC, MANAGER [employer] Primary Care Provider Active Start: April 08, 2024 End: April 08, 2024 Dr. Hema Guardado MD Attending Provider Active Start: April 08, 2024 End: April 08, 2024 Dr. Hema Guardado MD Referring Provider Active Start: April 08, 2024 End: April 08, 2024 Team Status: Active Member Role Status Dates Zebulun Beam VSC, MANAGER [employer] Primary Care Provider Active Start: July 14, 2024 Dr. Artie Haynes MD Attending Provider Active Start: July 14, 2024 Dr. Artie Haynes MD Referring Provider Active Start: July 14, 2024 Team Status: Inactive Member Role Status Dates Zebulun Beam VSC, MANAGER [employer] Primary Care Provider Active Start: July 17, 2024 End: July 17, 2024 Carterbulun Beam VSC, MANAGER [employer] Referring Provider Active Start: July 17, 2024 End: July 17, 2024 MIRNA Cortez Attending Provider Active Star t: July 17, 2024 End: July 17, 2024 Team Status: Inactive Member Role Status Dates Zebulun Beam VSC, MANAGER [employer] Primary Care Provider Active Start: July 14, 2024 End: July 14, 2024 Dr. Artie Haynes MD Attending Provider Active Start: July 14, 2024 End: July 14, 2024 Dr. Artie Haynes MD Referring Provider Active Start: July 14, 2024 End: July 14, 2024 Team Status: Active Member Role Status Dates Kalyanimirella Holder , MANAGER [employer] Primary Care Provider Active Team Status: Inactive Member Role Status Dates MIRNA Cortez Attending Provider Active Star t: July 25, 2024 End: July 25, 2024 MIRNA Cortez Referring Provider Active Star t: July 25, 2024 End: July 25, 2024 Kalyani Holder MANAGER [employer] Primary Care Provider Active Start: July 25, 2024 End: July 25, 2024 Team Status: Active Member Role/Relationship Status Dates Kalyani Holder , MANAGER [employer] Primary Care Provider Active Team Status: Inactive Member Role/Relationship Status Dates Carterbulun Beam VSC, MANAGER [employer] Primary Care Provider Active Start: July 14, 2024 End: July 14, 2024 Dr. Artie Haynes MD Attending Provider Active Start: July 14, 2024 End: July 14, 2024 Dr. Artie Haynes MD Referring Provider Active Start: July 14, 2024 End: July 14, 2024 Team Status: Inactive Member Role/Relationship Status Dates Zebulun Beam VSC, MANAGER [employer] Primary Care Provider Active Start: July 17, 2024 End: July 17, 2024 Carterbulun Beam VSC, MANAGER [employer] Referring Provider Active Start: July 17, 2024 End: July 17, 2024 MIRNA Cortez Attending Provider Active Star t: July 17, 2024 End: July 17, 2024 Team Status: Inactive Member Role/Relationship Status Dates MIRNA Cortez Attending Provider Active Star t: July 25, 2024 End: July 25, 2024 MIRNA Cortez Referring Provider Active Star t: July 25, 2024 End: July 25, 2024 Kalyani Holder MANAGER [employer] Primary Care Provider Active Start: July 25, 2024 End: July 25, 2024 Team Status: Inactive Member Role/Relationship Status Dates SURAJ Dawn Primary Care Provider Active Start: September 17, 2024 End: September 17, 2024 SURAJ Dawn Attending Provider Active Start: September 17, 2024 End: September 17, 2024 SURAJ Dawn Referring Provider Active Start: September 17, 2024 End: September 17, 2024 Goals (unrecognized section and content) Goals may be documented in a n alternate sectionGoals may be documented in an alternate sectionGoals may be documented in an alternate sectionGoals may be documented in an [...] BE BASED ON THE PRIMARY CLINICAL RECORDS. [facility]. provides no warranty or guarantee of the accuracy or completeness of information in this document.
[2024-10-24 10:40] LABS: AST(SGOT) 22 U/L (<=31); Alanine Aminotransfer ALT/SGPT 23 U/L (<=34); Albumin, Serum 4.3 g/dL (3.5-5.0); Alkaline Phosphatase 98 U/L (35-104); Anion Gap 12 (5-15); BUN 15 mg/dL (4-19); BUN/Creat Ratio 20.3 RATIO (10-20); Calcium,Total 9.6 mg/dL (7.6-11.0); Carbon Dioxide 24.4 mmol/L (21.0-32.0); Chloride 105 mmol/L (98-108); Cholesterol 141 mg/dL (<=200); Follicle Stimulating Hormone 77.2 mIU/mL; Globulin 2.7 g/dL (2.2-4.2); Glucose 107 mg/dL (70-99); Low Density Lipoprotein Calc. 68 mg/dL; Potassium 4.1 mmol/L (3.3-5.1); Triglycerides 70 mg/dL; Very Low Density Lipoprotein 14 mg/dL (5-40); Vitamin B12 1346 pg/mL (180-914); Vitamin D,25 Hydroxy 30.7 ng/mL (30-100); cholesterol:hdl ratio screen 2.39
[2024-10-24 10:44] LABS: CRP < 3.00 mg/L (0.0-3.0)
[2024-10-26 15:08] LABS: ANTINUCLEAR ANTIBODIES DIRECT Negative (Negative)
[2024-10-28 11:08] LABS: Testosterone, % Free 2.87 % (0.50-2.80); Testosterone, Free 0.11 ng/dL (0.10-0.85)
== END | disposition home or self-care (01) ==
LOC: LAB 08:04
PROVIDERS: PCP Nurse Practitioner Family; Referring Provider Nurse Practitioner Family; Visit Provider Nurse Practitioner Family
DX: Z13.1 Encounter for screening for diabetes mellitus (principal); E78.5 Hyperlipidemia, unspecified; M25.50 Pain in unspecified joint; N95.1 Menopausal and female climacteric states
CPT/HCPCS: 36415; 80053; 80061; 82306; 82607; 82670; 83001; 83036; 84402; 84403; 85652; 86038; 86140; 86431